=== PATIENT | female | born 1960 | race Caucasian/White ===

== ENCOUNTER 2019-04-06 17:45 | Outpatient (CLI) | payer OTHER, SELFPAY ==
--- NOTE | ~2019-04-06 | MM_ITS ---
EXAMINATION: MM screening [place] BI w scar HISTORY: Screening mammogram TECHNIQUE: Craniocaudal and mediolateral oblique 3-D tomosynthesis images were obtained and synthetic 2-D images were generated. CAD analysis was submitted and interpreted. COMPARISON 04/02/2018, 03/25/2017, 03/21/2016 bilateral digital screening mammogram examinations: No prio r mammogram is available for comparison at this institution. BREAST PARENCHYMAL COMPOSITION: There are scattered areas of fibroglandular density. FINDINGS: A biopsy marker is again noted on the right; history of prior benign right breast biopsy. There are scattered bilateral benign calcifications. Stable mild fibroglandular asymmetry. There is no evidence of suspicious mass, calcification, or architectural distortion to suggest malign anne-marie in either breast. There has been no suspicious interval change. IMPRESSION: 1. No mammographic evidence of malignancy. 2. Recommend routine screening mammography in one year. BI-RADS Category 2: Benign finding(s). Reviewed, dictated and finalized at location A. SETTER
== END 2019-04-06 17:46 | disposition home or self-care (01) ==
LOC: ANHIMG 17:49
PROVIDERS: PCP Family Medicine; Visit Provider Nurse Practitioner Obstetrics & Gynecology
DX: Z12.31 Encounter for screening mammogram for malignant neoplasm of breast (principal)
CPT/HCPCS: 77063; 77067

== ENCOUNTER 2021-02-04 12:49 | Emergency (ER) | payer OTHER, SELFPAY ==
[2021-02-04 13:00] VITALS: BP 146/71; PULSE 97; RESP 16; TEMP 36.4; O2SAT 98
--- NOTE | 2021-02-04 13:24 | ED.SKABFB ---
HPI - Skin/Abscess/Foreign Bdy General Chief complaint: Skin/Abscess/Foreign Body Stated complaint: rash Time Seen by Provider: 02/04/21 13:30 Source: patient and RN notes reviewed Mode of arrival: ambulatory Limitations: no limitations History of Present Illness HPI narrative: Babita is a 6-year-old female patient who ambulated into the [facility] today with complaint of rash all over her body. Patient states she started taking Boswellia extract for arthritis on 02/03/2021. Patient states she took it daily for the next 4 days. On to Friday she started noticing that she was itching by Friday she noticed a rash all over her body. Patient has been treating at home with a prescription lotion. 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 Patient's lower legs are being treated by dermatology and rheumatology in [place]. Patient states she has no other new medications. Patient states she has not used any new soaps or any other new products in her house. MD complaint: rash Related Data Home Medications Medication Instructions Recorded Confirmed celecoxib 200 mg DAILY 02/04/21 02/04/21 cyclosporine [Restasis] drp 02/04/21 latanoprost drp 02/04/21 leflunomide mg 02/04/21 Allergies Allergy/AdvReac Type Severity Reaction Status Date / Time [id number] Allergy Severe PENICILLIN Verified 02/04/21 13:48 REACTION--MOLD PREPARATION Sulfa (Sulfonamide Allergy Severe pruritic Verified 02/04/21 13:48 Antibiotics) RASH sulfamethoxazole Allergy Severe RASH Verified 02/04/21 13:48 trimethoprim Allergy Severe RASH Verified 02/04/21 13:48 Penicillins Allergy Unknown Rash Verified 02/04/21 13:48 CHIO Inhibitors Allergy angioedema Verified 02/04/21 13:48 Review of Systems Review of Systems: CONSTITUTIONAL: Denies body aches, fever, chills, or sweats. EYES: Denies visual changes, redness, or discharge. ENT: Denies rhinorrhea, congestion, sore throat, or otalgia. CARDIOVASCULAR: Denies chest pain, palpitations, or edema. RESPIRATORY: Denies cough or dyspnea. GASTROINTESTINAL: Denies abdominal pain, nausea, vomiting, or diarrhea. GENITOURINARY: Denies dysuria or hematuria. SKIN: Denies itching, or wounds.+ Rash MUSCULOSKELETAL: Denies back pain, joint pain, or myalgia. NEUROLOGIC: Denies headache, numbness, tingling, or weakness. PSYCH: Denies depression or anxiety. All systems reviewed & are unremarkable except as noted in HPI and below PMFSH Past Medical History Medical History Benign hypertension Glaucoma Morbid obesity Normal colonoscopy Onycholysis of toenail Onychomycosis due to dermatophyte CRISTOPHER treated with BiPAP Psoriasis Psoriatic arthritis Surgical History Surgical History H/O hand surgery History of esophagogastroduodenoscopy (EGD) Family History Family History Mother Family history of thyroid disease Family history of obesity Family history of blood dyscrasia Family history of glaucoma Family history of cataracts Family history of anemia Patient's mother is in good health Family history of kidney disease Father Family history of hearing loss Patient's father is , Onset Age: 72 Sibling Hypertension Patient's sister is in good health Patient's brother is in good health Family history of cardiovascular disease Family history of arthritis Social History Social History Social History: Smoking packs per day: 1 Smoking cigarettes per day: 20.0 Years smoked: 21 Smoking pack-years: 21.00 Smoking status: Never smoker Second hand tobacco smoke exposure: No Smoking end date: 02/05/99 Alcohol intake: current Alcohol
[2021-02-04] MEDS: methylPREDNISolone SOD SUCC 125 MG VIAL IM (13:49)
== END 2021-02-04 14:05 | disposition home or self-care (01) ==
PROVIDERS: Emergency Provider Nurse Practitioner Family; PCP Family Medicine
DX: L23.5 Allergic contact dermatitis due to other chemical products (principal); Z87.891 Personal history of nicotine dependence; H40.9 Unspecified glaucoma; E66.01 Morbid (severe) obesity due to excess calories; Z68.41 Body mass index [BMI] 40.0-44.9, adult; G47.33 Obstructive sleep apnea (adult) (pediatric); L40.50 Arthropathic psoriasis, unspecified
CPT/HCPCS: 96372; 99213; G0463; J2930

== ENCOUNTER 2021-05-29 17:28 | Outpatient (CLI) | payer OTHER, SELFPAY ==
--- NOTE | ~2021-05-29 | MM_ITS ---
EXAMINATION: MM screening [facility] BI w scar HISTORY: Screening TECHNIQUE: Craniocaudal and mediolateral oblique 3-D tomosynthesis images were obtained and synthetic 2-D images were generated. CAD analysis was submitted and interpreted. COMPARISON: Comparison to multiple prior studies sequentially, with oldest reviewed study dated 01/24. BREAST PARENCHYMAL COMPOSITION: There are scattered areas of fibroglandular density. FINDINGS: There is no evidence of suspicious mass, calcification, or architectural distortion to sugg est malignancy in either breast. There has been no suspicious interval change. IMPRESSION: 1. No mammographic evidence of malignancy. 2. Recommend routine screening mammography in one year. BI-RADS Category 1: Negative Reviewed, dictated and finalized at location A.
== END 2021-05-29 17:29 | disposition home or self-care (01) ==
PROVIDERS: PCP Family Medicine; Visit Provider Nurse Practitioner Obstetrics & Gynecology
DX: Z12.31 Encounter for screening mammogram for malignant neoplasm of breast (principal)
CPT/HCPCS: 77063; 77067

== ENCOUNTER 2021-06-08 09:55 | Outpatient (CLI) | payer OTHER, SELFPAY ==
[2021-06-08 10:34] LABS: Anion Gap 7 mmol/L (8-16); Blood Urea Nitrogen 15 mg/dL (7-17); Calcium 9.2 mg/dL (8.4-10.2); Carbon Dioxide 25 mmol/L (22-30); Chloride 106 mmol/L (98-107); Estimated Glomerular Filt Rate > 60; Glucose 119 mg/dL (65-110); Potassium 3.7 mmol/L (3.4-5.0); Sodium 138 mmol/L (137-145)
== END 2021-06-08 09:56 | disposition home or self-care (01) ==
LOC: ANHSURGERY 09:59
PROVIDERS: Anesthesiology; PCP Family Medicine; Visit Provider Obstetrics & Gynecology
DX: Z01.818 Encounter for other preprocedural examination (principal); Z79.899 Other long term (current) drug therapy
CPT/HCPCS: 36415; 80048

== ENCOUNTER → 2021-06-09 00:19 | Outpatient (CLI) | payer OTHER, SELFPAY ==
[2021-06-09 11:57] LABS: SARS-CoV-2 RNA PCR Negative
== END ==
PROVIDERS: Nurse Practitioner Gerontology; PCP Family Medicine; Visit Provider Obstetrics & Gynecology
DX: Z01.812 Encounter for preprocedural laboratory examination (principal); Z20.822 Contact with and (suspected) exposure to COVID-19
CPT/HCPCS: C9803; U0003; U0005

== ENCOUNTER 2021-07-11 00:18 | Day surgery (SDC) | payer OTHER, SELFPAY ==
[2021-06-06 11:57] VITALS: BMI 41.6
--- NOTE | 2021-06-06 12:10 | PC.NURSE ---
Report to the Outpatient Waiting Room, entrance under the green pavilion located off [facility], at time 8:30 on date 06/12/21. OR Time: 10:30. - You and your visitor will be asked a series of questions to screen for COVID 19 for your protection. - A mask is required within the hospital. One visitor will be allowed to accompany the patient into the hospital. Patients visitor will be instructed to remain with patient at all times or leave the building. We will allow the visitor to come back to the postoperative area when patient is ready. Preoperative COVID Testing Requirements: COVID TEST 06/09 AT 7:30 No COVID Test needed if: (proof is required; if not received patient will have Rapid Test prior to entry) - Patient has received COVID Vaccine at least 14 days prior to procedure date or - Patient has positive COVID test result within last 90 days of surgery date. COVID Test needed if above criteria is not met If not COVID vaccinated a COVID test must be conducted within 72 hours of surgery and patient is asked to isolate self from time of testing until procedure. You will go to the [facility] for your COVID testing. The [facility] is located at the corner of [address] [facility]. You will only be called if COVID results are positive and your surgeon may reschedule your elective surgery date. Patients may have clear liquids (water, carbonated beverages, clear teas, apple juice) until 3 hours prior to surgery (7:30) with a maximum of 20 ounces. - No food from midnight until time of surgery Take the following medications with a SIP of water the morning of surgery: LEVOTHYROXINE, LIOTHYRONINE Medications to discontinue per physician: VITAMINS/SUPPLEMENTS Date to take last dose: 06/08/21 Please no make-up, nail botswanan, hairspray, perfume, deodorant, or body powder the day of surgery. No jewelry (including any body piercings) or valuables the day of surgery, leave them at home. Please take a shower or bath the night before, or the morning of, surgery with an antibacterial soap. Wear comfortable, loose fitting clothing. - Jewelry must be removed prior to entering the operating room. Rings and piercings that are not removed may be cut off. - The hospital will not accept responsibility for valuables. - Please leave all valuables, including medications, at home the day of surgery. If you are going home after surgery, a licensed feeder driver must drive you home. - NO public transportation without another adult. - We recommend that an adult stay with you for 24 hours following discharge. - We also recommend that you do not drive, make important decision, drink alcoholic beverages, or take any drugs that were not prescribed by your health care provider for at least 24 hours after your discharge time. Follow any additional instructions given to you from your surgeon. Telephone instructions given to ROEL CONTRERAS and asked if any additional questions and then verbalized understanding. Patient advised to call surgeon office or pre surgery nurse liaison [phone] if any additional questions.
[2021-07-09 10:23] VITALS: BMI 41.6
--- NOTE | 2021-07-09 10:37 | SUR.PREOP ---
Report to the Outpatient Waiting Room, entrance under the green pavilion located off [facility], at time 0800 on date 07/11/2021. OR Time: 1000 - You and your visitor will be asked a series of questions to screen for COVID 19 for your protection. - Only one visitor is allowed at this time. - The patient visitor is requested to leave or wait in car when not with patient. - A mask is required within the hospital. Patients may have clear liquids (water, carbonated beverages, clear teas, apple juice) until 3 hours prior to surgery with a maximum of 20 ounces. stop 0600 - No food from midnight until time of surgery Take the following medications with a SIP of water the morning of surgery: levothyroxine and liothyronine okay to take Medications to discontinue per physician Vit D_ Date to take last dose states stopped already Please no make-up, nail chinese, hairspray, perfume, deodorant, or body powder the day of surgery. No jewelry (including any body piercings) or valuables the day of surgery, leave them at home. Please take a shower or bath the night before, or the morning of, surgery with an antibacterial soap. Wear comfortable, loose fitting clothing. Children are encouraged to wear pajamas. - Jewelry must be removed prior to entering the operating room. Rings and piercings that are not removed may be cut off. - The hospital will not accept responsibility for valuables. - Please leave all valuables, including medications, at home the day of surgery. If you are going home after surgery, a licensed refrigerated company driver must drive you home. - NO public transportation without another adult. - We recommend that an adult stay with you for 24 hours following discharge. - We also recommend that you do not drive, make important decision, drink alcoholic beverages, or take any drugs that were not prescribed by your health care provider for at least 24 hours after your discharge time. Follow any additional instructions given to you from your surgeon. If you or anyone in your household have experienced Covid symptoms in the past week, please notify your surgeon or the nurse liaison at the phone number below for possible testing. Telephone instructions given to patient Babita and asked if any additional questions and then verbalized understanding. Patient advised to call surgeon office or pre surgery nurse liaison [phone] if any additional questions.
[2021-07-11 08:35] VITALS: BP 137/73; PULSE 82; RESP 16; TEMP 36.2; O2SAT 98
[2021-07-11] MEDS: ACETAMINOPHEN 500 MG TABLET 1000 MG PO (08:54)
[2021-07-11] MEDS: LACTATED RINGERS 1,000 ML 30 ML IV CONT (09:18)
--- NOTE | 2021-07-11 09:19 | WPDANESEPPF ---
Anes - Initial Pre Proc Eval Procedure: Operation Date: 07/11/21 10:30 Proposed Procedures p Hysteroscopy with Dilation and Curettage - Joe Alvarado MD Date/Time: 07/11/21 09:19 Surgeon: Joe Alvarado MD Pre Op Diagnosis: Post Menopausal Bleeding Patient Data Age: 60 Gender: F Height: 1.6 m Weight: 103.9 kg Last Vital Signs Temp 36.2 C L 07/11/21 08:35 Pulse 82 07/11/21 08:35 Resp 16 07/11/21 08:35 BP 137/73 07/11/21 08:35 Pulse Ox 98 07/11/21 08:35 Allergies Allergy/AdvReac Type Severity Reaction Status Date / Time Sulfa (Sulfonamide Allergy Severe pruritic Verified 07/09/21 10:03 Antibiotics) RASH sulfamethoxazole Allergy Severe RASH Verified 07/09/21 10:03 trimethoprim Allergy Severe RASH Verified 07/09/21 10:03 Penicillins Allergy Unknown Rash Verified 07/09/21 10:03 leflunomide Allergy Rash Verified 07/09/21 10:03 mold Allergy Rash Verified 07/09/21 10:03 Home Medications Medication Instructions Recorded Confirmed Type ergocalciferol (vitamin D2) 1,250 50,000 unit PO WEEKLY #14 cap 12/15/20 07/09/21 Rx mcg (50,000 unit) capsule hydrochlorothiazide 12.5 mg tablet 12.5 mg PO DAILY #90 tablet 12/28/20 07/09/21 Rx celecoxib 200 mg PO DAILY 02/04/21 07/09/21 History cyclosporine [Restasis] 2 drp EACH EYE BID 02/04/21 07/09/21 History latanoprost 1 drp EACH EYE HS 02/04/21 07/09/21 History liothyronine 5 mcg tablet 5 mcg PO DAILY #90 tablet 02/26/21 07/09/21 Rx cetirizine 10 mg tablet 10 mg PO DAILY PRN #90 tablet 03/06/21 07/09/21 Rx hydroxyzine HCl 25 mg tablet 25 mg PO QID #90 tablet 03/06/21 07/09/21 Rx spironolactone 25 mg tablet See Rx Instructions .ROUTE 04/17/21 07/09/21 Rx .COMPLEX #90 tablet levothyroxine 125 mcg tablet See Rx Instructions .ROUTE 06/26/21 07/09/21 Rx .COMPLEX #80 tablet famotidine 20 mg tablet 20 mg PO BID #60 tablet 06/30/21 07/09/21 Rx clobetasol 0.05 % topical cream 1 applic TOPICAL BID 14 Days #60 g 07/04/21 07/09/21 Rx losartan 100 mg tablet See Rx Instructions .ROUTE 07/06/21 07/09/21 Rx .COMPLEX #90 tablet Patient hx anesthesia problems: none Family hx anesthesia problems: none Results Review: All pre-operative results and documents have been reviewed as part of the pre-operative evaluation. [facility] Past Medical History Medical History Benign hypertension Glaucoma Morbid obesity Normal colonoscopy Onycholysis of toenail Onychomycosis due to dermatophyte CRISTOPHER treated with BiPAP Psoriasis Psoriatic arthritis Surgical History Surgical History (Updated 07/11/21 @ 09:23 by Castro Craig MD) H/O hand surgery History of endometrial ablation History of esophagogastroduodenoscopy (EGD) Family History Family History Mother Family history of thyroid disease Family history of obesity Family history of blood dyscrasia Family history of glaucoma Family history of cataracts Family history of anemia Patient's mother is in good health Family history of kidney disease Father Family history of hearing loss Patient's father is , Onset Age: 72 Sibling Hypertension Patient's sister is in good health Patient's brother is in good health Family history of cardiovascular disease Family history of arthritis Social History Social History Social History: Years smoked: 20 Smoking status: Former smoker Tobacco type: cigarettes Second hand tobacco smoke exposure: No Smoking end date: 02/05/99 Alcohol intake: current Alcohol use details: 2/MONTH Substance use: never Substance use type: does not use Living arrangements: with family Gender identity (if verbalized by the patient): Female Sexual Orientation (if Verbalized by the Patient): Straight or Heterosexual Spiritual care concerns: No Anes - Aziza
--- NOTE | 2021-07-11 11:06 | WPDHPUPDATE1 ---
History and Physical Update Update Date/Time: 07/11/21 11:06 History and Physical has been reviewed, including an updated exam of the patient. There are NO changes in the patient's condition. Risks, benefits, and alternatives have been discussed and questions answered. Patient agrees to proceed with procedure.
--- NOTE | 2021-07-11 11:19 | W.PM.PROC2 ---
Procedure Note - Detailed Date of Procedure 07/11/21 Pre-op Diagnosis Post Menopausal Bleeding Post-op Diagnosis Same Procedure Performed Hysteroscopy D&C Surgeon Joe Alvarado MD Anesthesia MAC Indications abnormal uterine bleeding Findings Very thin, scarred, atrophic endometrium with possibly no endometrium. Description of Procedure the patient was taken the operating room. She was prepped and draped in the dorsal lithotomy position after induction of mac anesthesia. A speculum was placed in the vagina. The cervix was grasped with a tenaculum. The cervix was dilated about 1 cm. The hysteroscope was inserted. The intrauterine cavity and endocervix were evaluated. Hysteroscope was withdrawn. A medium-size curette was used to curettage all the surfaces were within the endometrial cavity. the sample was collected on Telfa and sent to pathology. The hysteroscope was reinserted and the above findings were noted. Patient tolerated the procedure well. The speculum and tenaculum were removed. She was taken recovery room in stable condition. Sponge lap and needle counts were correct x2. Estimated Blood Loss 40 Drains No Packing No Pathology Yes Complications No immediate complications Condition Stable Disposition PACU
[2021-07-11 12:26] VITALS: BP 119/73; PULSE 80; RESP 16; O2SAT 94
[2021-07-11 12:55] VITALS: BP 135/85; PULSE 69; RESP 16; O2SAT 96
[2021-07-11] MEDS: oxyCODONE HCL (*CRX) 5 MG TAB IR PO (12:58)
[2021-07-11 13:25] VITALS: BP 126/76; PULSE 65; RESP 16
== END 2021-07-11 13:40 | disposition home or self-care (01) ==
PROVIDERS: PCP Family Medicine; Visit Provider Obstetrics & Gynecology
PROC: 0U5B8ZZ Destruction of Endometrium, Via Natural or Artificial Opening Endoscopic (ICD-10-PCS; CPT 58563; principal; 2021-07-11 10:30)
DX: N95.0 Postmenopausal bleeding (principal); N85.8 Other specified noninflammatory disorders of uterus; I10 Essential (primary) hypertension; G47.33 Obstructive sleep apnea (adult) (pediatric); L40.50 Arthropathic psoriasis, unspecified; H40.9 Unspecified glaucoma; E66.01 Morbid (severe) obesity due to excess calories; Z68.41 Body mass index [BMI] 40.0-44.9, adult
CPT/HCPCS: 58558; 88305; A9270; J2250; J2704; J3010; J7030; J7120

== ENCOUNTER 2021-08-09 16:44 | Outpatient (CLI) | payer OTHER, SELFPAY ==
--- NOTE | ~2021-08-09 | DEXA_ITS ---
Bone Density Report Name: ROEL CONTRERAS Age: 60 Sex: Female Ethnicity: White Date of : 1960 Indication: postmenopausal; screening for osteoporosis; height loss; Referring Provider: LORETTA, BELLO [place] Study: Bone densitometry was performed. Exam Date: August 09, 2021 Accession number: [id number] Bone Density: Region BMD T-score Z-score Classification AP Spine(L1-L4) 0.955 -0.8 0.6 Normal Femoral Neck (Left) 0.700 -1.3 0.0 Osteopenia Total Hip (Left) 1.012 0.6 1.6 Normal Femoral Neck (Right) 0.755 -0.8 0.5 Normal Total Hip (Right) 1.063 1.0 2.0 Normal Total Hip Mean 1.037 0.8 1.8 Normal World Health Organization criteria for BMD impression classify patients as: Normal (T-score at or above -1.0), Osteopenia (T-score between -1.0 and -2.5), or Osteoporosis (T-score at or below -2.5). 10-year Fracture Risk(1): Major Osteoporotic Fracture 6.7% Hip Fracture 0.4% Reported Risk Factors: [place] (), Neck BMD=0.700, BMI=43.0 (1) FRAX(R) Version 3.08. Fracture probability calculated for an untreated patient. Fracture probability may be lower if the patient has received treatment. Clinical Information Provided by Patient: Patient maximum height was 63 Menopause Age: 38 No regular weight bearing exercise Drinks caffeinated beverages Onset of menses at age 13 Number of children 1 Impression: The patient has low bone mass, based on the Left Femoral Neck T-score. The patient has an estimated ten-year risk of hip fracture of 0.4% and an estimated ten-year risk of major fracture of 6.7%, based on the WHO FRAX algorithm. Discussion: BONE DENSITY IS LOW AT ONE OR MORE SKELETAL SITES. This patient's lowest T-score is low at one or more skeletal sites. It meets the World Health Organization's (WHO) criteria for ?low bone mass? (T-score between -1.0 and -2.5). The patient's 10-year risk of fracture as calculated by FRAX is less than the threshold where pharmacological therapy is recommended by the National Osteoporosis Foundation (NOF). However, all treatment decisions require clinical judgment and consideration of individual patient factors, including patient preferences, comorbidities, previous drug use, risk factors not captured in the FRAX model (e.g., frailty, falls, vitamin D deficiency, increased bone turnover, interval significant decline in bone density) and possible under or overestimation of fracture risk by FRAX. The patient should follow a healthful lifestyle (good nutrition with adequate calcium and vitamin D, and appropriate weight-bearing exercise). Follow-Up: Consider repeating this study in 2 to 3 years to reassess this patient's status, or sooner if there is some new clinical indication. Reported by: REBECA on 08/09/2021 5:09:00 PM.
== END 2021-08-09 16:45 | disposition home or self-care (01) ==
PROVIDERS: PCP Family Medicine; Visit Provider Nurse Practitioner Obstetrics & Gynecology
DX: Z78.0 Asymptomatic menopausal state (principal); M85.852 Other specified disorders of bone density and structure, left thigh
CPT/HCPCS: 77080

== ENCOUNTER 2022-07-20 09:11 | Outpatient (CLI) | payer OTHER, SELFPAY ==
--- NOTE | ~2022-07-20 | MM_ITS ---
EXAMINATION: MM screening [place] BI w scar HISTORY: Screening mammogram TECHNIQUE: Craniocaudal and mediolateral oblique 3-D tomosynthesis images were obtained and synthetic 2-D images were generated. CAD analysis was submitted and interpreted. COMPARISON: May 29, 2021, April 06, 2019, April 02, 2018 bilateral screening mammogram examinat ions BREAST PARENCHYMAL COMPOSITION: There are scattered areas of fibroglandular density. FINDINGS: There is a biopsy marker on the right; history of prior benign right breast biopsy. Scattered bilateral benign microcalcifications. There is no evidence of suspicious mass, calcificatio n, or architectural distortion to suggest malignancy in either breast. There has been no suspicious i nterval change. IMPRESSION: 1. No mammographic evidence of malignancy. 2. Recommend routine screening mammography in one year. BI-RADS Category 2: Benign finding(s). Reviewed, dictated and finalized at location A.
== END 2022-07-20 09:12 | disposition home or self-care (01) ==
PROVIDERS: PCP Student in an Organized Health Care Education/Training Program; Visit Provider Nurse Practitioner Obstetrics & Gynecology
DX: Z12.31 Encounter for screening mammogram for malignant neoplasm of breast (principal)
CPT/HCPCS: 77063; 77067

== ENCOUNTER 2024-06-08 17:08 | Emergency (ER) | payer OTHER, SELFPAY ==
--- OUTSIDE RECORDS SUMMARY | 2024-06-08 17:11 | XMS_ITS | Encounter Summary ---
Author Organization [facility] Address [address] [place] [address] Care Team Providers Care Pond Worker Name Role Phone Amira San MD Primary Care Provider [phone] Dorota Campbell MD Primary Care Provider Antoinette Ruiz PA-C Unavailable [phone] Encounter Details Date Type Department Care Team (Late st Contact Info) Description 04/14/2017 Abstract [facility] CONVERSION [address] [place] [address] , Generic MD Fernanda Social History Tobacco Use Types Packs/Day Years Used Date Smoking Tobacco: Never Assessed Comments Unknown Sex and Gender Information Value Date Recorded Sex Assigned at Female 04/01/2024 4:04 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 TANK 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 Legal Sex Female 5:30 PM CDT Gender Identity Female 04/01/2024 4:04 PM BRINE TANK OPERATOR Sexual Orientation Not on file documented as of this encounter Plan of Treatment Upcoming Encounters Date Type Department Care Team (Late st Contact Info) Description 06/22/2024 3:40 PM CDT Office Visit [facility] Orthopedic & Sports Medicine - [place] [address] [place] [address] Gaudencio Correa MD [address] [address] [place], [place] [id number] 11/11/2024 4:20 PM CDT Office Visit [facility] Family & Internal Medicine [facility] [address] [place] [address] [place] [address] [facility] [address] [place] [id number] documented as of this encounter Visit Diagnoses Not on filedocumented in this encounter Additional Health Concerns Infection Onset Date Last Indicated Resolved Time COVID-19 Rule Out 02/23/2024 02/23/2024 02/23/2024 4:27 PM BRINE TANK OPERATOR documented as of this encounter Care Teams Pond Worker Relationship Specialty Start Date End Date Amira San MD [address] [facility] [address] [place] [address] PCP - General FAMILY PRACTICE 05/05/20 04/01/22 [place] [address] [place] [address] PCP - General FAMILY PRACTICE 04/02/22 Antoinette Ruiz [place] [address] [place] [address] PHYSICIAN SILVERSMITH APPRENTICE 06/17/23 documented as of this encounter
--- OUTSIDE RECORDS SUMMARY | 2024-06-08 17:11 | XMS_ITS ---
Author Organization Unknown Medications Medication Instructions Effective Dates (start - stop) Status levothyroxine sodium 0.1 MG Oral Tablet - Completed liothyronine sodium 0.005 MG Oral Tablet - Completed pentoxifylline 400 MG Extend ed Release Oral Tablet - Completed losartan potassium 100 MG Or al Tablet - Completed spironolactone 25 MG Oral Tablet 00:00:00Z - Completed liothyronine sodium 0.005 MG Oral Tablet - Completed liothyronine sodium 0.005 MG Oral Tablet - Completed losartan potassium 100 MG Or al Tablet - Completed tramadol hydrochloride 50 MG Oral Tablet - Completed liothyronine sodium 0.005 MG Oral Tablet - Completed 1 ML secukinumab 150 MG/ML Auto-Injector [Cosentyx] - Completed spironolactone 25 MG Oral Tablet :00:00Z - Completed tramadol hydrochloride 50 MG Oral Tablet - Completed famotidine 20 MG Oral Tablet [id number] 0:00:00Z - Completed liothyronine sodium 0.005 MG Oral Tablet - Completed 1 ML secukinumab 150 MG/ML Auto-Injector [Cosentyx] - Completed levothyroxine sodium 0.125 M G Oral Tablet - Completed levothyroxine sodium 0.125 M G Oral Tablet - Completed pentoxifylline 400 MG Extend ed Release Oral Tablet - Completed pentoxifylline 400 MG Extend ed Release Oral Tablet - Completed pentoxifylline 400 MG Extend ed Release Oral Tablet - Completed tacrolimus 0.001 MG/MG Topic al Ointment - Completed tramadol hydrochloride 50 MG Oral Tablet - Completed brimonidine tartrate 2 MG/ML Ophthalmic Solution - Completed doxycycline hyclate 100 MG O ral Capsule - Completed levothyroxine sodium 0.125 M G Oral Tablet - Completed acetaminophen 325 MG / hydro codone bitartrate 5 MG Oral Tablet - Completed pentoxifylline 400 MG Extend ed Release Oral Tablet - Completed brimonidine tartrate 2 MG/ML Ophthalmic Solution - Completed 1 ML secukinumab 150 MG/ML Auto-Injector [Cosentyx] - Completed famotidine 20 MG Oral Tablet [id number] 0:00:00Z - Completed 1 ML secukinumab 150 MG/ML Auto-Injector [Cosentyx] - Completed pentoxifylline 400 MG Extend ed Release Oral Tablet - Completed losartan potassium 100 MG Or al Tablet - Completed brimonidine tartrate 2 MG/ML Ophthalmic Solution - Completed hydrochlorothiazide 12.5 MG Oral Tablet - Completed spironolactone 25 MG Oral Tablet :00:00Z - Completed {21 (methylprednisolone 4 MG Oral Tablet) } Pack - Completed losartan potassium 100 MG Or al Tablet - Completed 1 ML secukinumab 150 MG/ML Auto-Injector [Cosentyx] - Completed levothyroxine sodium 0.1 MG Oral Tablet - Completed 1 ML secukinumab 150 MG/ML Auto-Injector [Cosentyx] - Completed 1 ML secukinumab 150 MG/ML Auto-Injector [Cosentyx] - Completed tramadol hydrochloride 50 MG Oral Tablet - Completed famotidine 20 MG Oral Tablet [id number] 0:00:00Z - Completed pentoxifylline 400 MG Extend ed Release Oral Tablet - Completed levothyroxine sodium 0.125 M G Oral Tablet - Completed liothyronine sodium 0.005 MG Oral Tablet - Completed pentoxifylline 400 MG Extend ed Release Oral Tablet - Completed 0.4 ML cyclosporine 0.5 MG/M L Ophthalmic Suspension [Restasis] - Comp leted acetaminophen 325 MG / hydro codone bitartrate 5 MG Oral Tablet - Completed 1 ML secukinumab 150 MG/ML Auto-Injector [Cosentyx] - Completed 1 ML secukinumab 150 MG/ML Auto-Injector [Cosentyx] - Completed losartan potassium 100 MG Or al Tablet - Completed hydrochlorothiazide 12.5 MG Oral Tablet - Completed metronidazole 0.0075 MG/MG T opical Gel - Completed pentoxifylline 400 MG Extend ed Release Oral Tablet - Completed nitrofurantoin, macrocrystal s 25 MG / nitrofurantoin, monohydrate 75 MG Oral Capsule - Completed 1 ML secukinumab 150 MG/ML Auto-Injector [Cosentyx] - Completed metronidazole 0.0075 MG/MG T opical Gel - Completed pentoxifylline 400 MG Extend ed Release Oral Tablet - Completed 1 ML secukinumab 150 MG/ML Auto-Injector [Cosentyx] - Completed tacrolimus 0.001 MG/MG Topic al Ointment - Completed spironolactone 25 MG Oral Tablet :00:00Z - Completed acetaminophen 325 MG / hydro codone bitartrate 5 MG Oral Tablet - Completed pentoxifylline 400 MG Extend ed Release Oral Tablet - Completed brimonidine tartrate 2 MG/ML Ophthalmic Solution - Completed spironolactone 25 MG Oral Tablet :00:00Z - Completed brimonidine tartrate 2 MG/ML Ophthalmic Solution - Completed brimonidine tartrate 2 MG/ML Ophthalmic Solution - Completed 1 ML secukinumab 150 MG/ML Auto-Injector [Cosentyx] - Completed pentoxifylline 400 MG Extend ed Release Oral Tablet - Completed {6 (azithromycin 250 MG Oral Tablet) } Pack - Completed famotidine 20 MG Oral Tablet [id number] 0:00:00Z - Completed hydrochlorothiazide 12.5 MG Oral Tablet - Completed brimonidine tartrate 2 MG/ML Ophthalmic Solution - Completed ergocalciferol 1.25 MG Oral Capsule 00:00:00Z - Completed famotidine 20 MG Oral Tablet [id number] 0:00:00Z - Completed desoximetasone 2.5 MG/ML Top ical Cream - Completed 1 ML secukinumab 150 MG/ML Auto-Injector [Cosentyx] - Completed hydrochlorothiazide 12.5 MG Oral Tablet - Completed brimonidine tartrate 2 MG/ML Ophthalmic Solution - Completed levothyroxine sodium 0.1 MG Oral Tablet - Completed levothyroxine sodium 0.1 MG Oral Tablet - Completed acetaminophen 325 MG / hydro codone bitartrate 5 MG Oral Tablet - Completed tramadol hydrochloride 50 MG Oral Tablet - Completed tacrolimus 0.001 MG/MG Topic al Ointment - Completed Patient Care team information Name Category Status Period Participants - - Proposed period not known -
--- OUTSIDE RECORDS SUMMARY | 2024-06-08 17:11 | XMS_ITS | Data Portability ---
Author Organization [facility] Address [address] [place] [address] [place] [address] Care Team Providers Care Director Metabolism Name Role Phone ZAC MAGUIRE Primary Care Provider Assessment Encounter Date Assessment Date Assessment LastModified by Organization Details LastModified Time 05/03/2022 05/03/2022 Annual gynecological exam performed. Patient will come back in a year unless there are new symptoms. [email or web address] Not available 05/03/2022 11:23:39 Plan of Treatment Reminders Order Date Submit Date Provider Last Modified By Organization Details Last Modified Time Details Appointments None recorded. Lab None recorded. Referral None recorded. Procedures None recorded. Surgeries None recorded. Imaging MAMMO, screening, bilateral 2022 023 [facility], [address], [address], [place], [address], 3 05:01:16 US, transvagina l 2021 022 [email or web address] [place], [address], [address], [place], [address], 18:10:40 Medication Orders None recorded. Patient TargetsNo targets recorded. Patient InstructionsNo instructions recorded. Reason for Referral None Reported. Results Created Date Observation Date Name Description Value Unit Range Abnormal Flag Note LastModifiedBy Organization Detail LastModifiedTime 08/03/19 22 08/02/2021 US, trans vagin al No observ ation record ed. [email or web address] [address], [place], [address], 08/02/2021 18:06:47 08/03/19 22 08/02/2021 US, trans vagin al No observ ation record ed. [email or web address] [address], [place], [address], 08/02/2021 19:09:47 09/12/19 22 DEXA, axial skele ton + verte bral fract ure asses sment No observ ation record ed. [facility] [address], [place], [address], 09/16/2021 11:37:38 Result Notes None recorded. 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 2 16:23:53 Blood leukocyt e number above referenc e range [id number] Completed 201604/26/2021 Elevated white blood cell count, unspecif ied;Prac ady ID: 0001 [facility] 2 16:23:37 Screenin g for malignan t neoplasm of rectum Completed 201604/26/2021 Encounte r for screenin g for malignan t neoplasm of rectum;P ractice ID: 0001 [facility] 2 16:23:[address] Concept Completed 201704/26/2021 Encntr for general adult medical exam w/o abnormal findings ;Practic e ID: 0001 [facility] 2 16:23:51 Finding of body mass index [id number] Completed 201804/26/2021 Body mass index (BMI) 40.0-44. 9, adult;Re corded Elsewher e: No Locat ion: [facility] S ource: EHR Customer Service Rep nathan: N Zachti ce ID: 0001 Perez lable Time: 01:00:00 PM [facility] 2 16:23:36 Speciali zed medical examinat ion Completed 201304/26/2021 Gynecolo gical Examinat ion;John rded Elsewher e: No Locat ion: [facility] S ource: EHR Customer Service Rep nathan: N Zachti ce ID: 0001 Perez lable Time: 03:45:00 PM [facility] 2 16:23:55 Adult health examinat ion Completed 201304/26/2021 ROUTINE MEDICAL EXAM;Rec orded Elsewher e: No Locat ion: [facility] S ource: EHR Customer Service Rep nathan: N Zachti ce ID: 0001 Perez lable Time: 03:45:00 PM [facility] 2 16:23:35 Menopaus e present [id number] Completed 201704/26/2021 Symptoms such as flushing , sleeples sness, headache , lack of concentr ation, associat ed with natural (age-rel ated) menopaus e;Record ed Elsewher e: No Locat ion: [facility] S ource: EHR Customer Service Rep nathan: N Zachti ce ID: 0001 Perez lable Time: 01:30:00 PM [facility] 2 16:23:43 Urinary incontin ence [id number] Completed 201104/26/2021 Urinary incontin ence, unspecif ied;John rded Elsewher e: No Locat ion: [facility] S ource: EHR Customer Service Rep nathan: N Zachti ce ID: 0001 Perez lable Time: 02:45:00 PM [facility] 2 16:23:57 Urinary tract infectio us disease [id number] Completed 201112/20/2011 Urinary Tract Infectio n;Record ed Elsewher e: No Locat ion: [facility] S ource: EHR Customer Service Rep nathan: N Practi ce ID: 0001 Perez lable Time: 02:45:00 PM Not Available [facility] 0 21:54:39 Leukocyt osis [id number] Completed 201104/26/2021 LEUKOCYT OSIS NOS;John rded Elsewher e: No Locat ion: [facility] S ource: EHR Customer Service Rep nathan: N Zachti ce ID: 0001 Perez lable Time: 03:30:00 PM [facility] 2 16:23:39 Speciali zed medical examinat ion Completed 201012/20/2011 Gynecolo gical Examinat ion;John rded Elsewher e: No Locat ion: [facility] S ource: EHR Customer Service Rep nathan: N Zachti ce ID: 0001 Perez lable Time: 11:30:00 AM [facility] 2 16:23:55 Screenin g for malignan t neoplasm of cervix Completed 201012/20/2011 Screenin g for malignan t neoplasm s of the cervix;R ecorded Elsewher e: No Locat ion: [facility] S ource: EHR Customer Service Rep nathan: N Practi ce ID: 0001 Perez lable Time: 11:30:00 AM [facility] 2 16:23:47 Screenin g for malignan t neoplasm of rectum Completed 201012/20/2011 Screenin g for malignan t neoplasm s of the rectum;R ecorded Elsewher e: No Locat ion: [facility] S ource: EHR Customer Service Rep nathan: N Practi ce ID: 0001 Perez lable Time: 11:30:00 AM [facility] 2 16:23:49 Leukopen ia [id number] Completed 201104/26/2021 LEUKOCYT OPENIA NOS;Prac ady ID: 0001 [facility] 2 16:23:41 Proteinu kimmie [id number] Completed 201104/26/2021 Proteinu kimmie;Prac ady ID: 0001 [facility] 2 16:23:45 Screenin g for malignan t neoplasm of cervix Completed 201104/26/2021 Pap Smear;Pr actice ID: 0001 [facility] 2 16:23:47 Problem Notes None recorded. Procedures Surgical History Date Name Laterality Status Provider Name and Address Organization Details Recorded Time 07/12/19 22 DILATION AND CURETTAGE WITH HYSTEROSCOPY (SURG) completed Lisbeth Hatch [facility] 07/12/2021 11:38:45 04/28/19 22 Date of Last Pap Smear completed Ginna De Jesus [facility] 05/03/2022 11:25:39 04/02/19 20 Date of Last Mammogram completed [facility] 04/27/2021 09:36:07 02/24/19 13 release of trigger thumb completed [facility] 04/26/2021 17:15:59 02/03/20 12 Most Recent Bone Density completed [facility] 04/27/2021 09:36:43 02/24/19 06 Breast Biopsy completed [facility] 04/26/2021 17:14:50 02/24/19 06 Hysteroscopy completed [facility] 04/26/2021 17:15:19 02/24/18 99 procedure on urinary bladder completed [facility] 04/26/2021 17:14:36 02/24/18 88 Tubal Ligation completed [facility] 04/26/2021 17:14:21 Tubal Ligation completed [facility] 04/27/2021 10:02:10 Colonoscopy completed [facility] 04/27/2021 10:02:10 Breast Biopsy completed [facility] 04/27/2021 10:02:10 LEEP completed [facility] 04/27/2021 10:02:10 Hysteroscopy completed Julita Clinton [facility] 05/14/2021 17:01:51 Imaging Results Imaging Date Name Status LastModified by Organization Details LastModified Time 08/02/2021 US[facility]inal [email or web address] [address] [place], [address], 08/02/2021 18:06:47 08/02/2021 US, transvaginal completed [email or web address] [address], [place], [address], 08/02/2021 19:09:47 09/11/2021 DEXA, axial skeleton + vertebral fracture assessment completed [facility] [address], [place], [address], 09/16/2021 11:37:38 Procedure Notes None recorded. Medical Equipment None Reported. Allergies Allergen ID Allergen Name Allergen Category Reaction Reaction Severity Criticality Documentation Date Start Date Code Code System Note Provider Name and Address Organization Details Recorded Time 03500 egg extract food,medi cation Not available Not available Not available 02/11/2020 44236 15 RxNorm React ion: sneez e, blow nose, water y itchy ; Comme nt: Locat ion: [facility] Stevens r; Not Available [facility] 0 14:17:48 09692 chicken derived food Not available Not available Not available 02/11/2020 10436 UNK Comme nt: Locat ion: [facility] Stevens [facility]; Not Available [facility] 0 14:17:48 45176 Product containin g penicilli n (product) medicatio n Not available Not available Not available 02/11/2020 49052 8001 SNOMED React ion: Hives / Skin Rash; Comme nt: Locat ion: [facility]; Not Available [facility] 0 14:17:48 Medications Name Sig Start Date Stop Date Status Note LastModified by Organization Details LastModified Time celecoxib 200 mg capsule TAKE 1 CAPSULE BY MOUTH ONCE DAILY active Not Available Not Available No t Available latanopro st 0.005 % eye drops INSTILL 1 DROP INTO EACH EYE AT BEDTIME DIRECTED 05/03 completed Not Available Not Available Not Available aspirin 300 mg rectal supposito ry 04/27 completed Prescrib ed Elsewher e: Yes Loca tion: Paolo gandhi [facility] odify By: alex loaiza DateTime : 01/25/20 14 02:34:16 PM Not Available Not Available Not Available Colace 100 mg capsule take 1 capsule by oral route every day at bedtime as needed 04/27 completed Prescrib ed Elsewher e: Yes Loca tion: Paolo gandhi [facility] odify By: alex loaiza DateTime : 01/25/20 14 02:34:16 PM Not Available Not Available Not Available cetirizin e 10 mg tablet TAKE 1 TABLET BY MOUTH ONCE DAILY FOR ALLERGIE S 05/03 completed Not Available Not Available Not Available fluocinol one 0.01 % topical cream apply by topical route 2- 4 times every day a thin layer to the affected area(s) 01/31 completed Prescrib ed Elsewher e: Yes Loca tion: Paolo gandhi [facility] odify By: lsloan E ncounter DateTime : 01/25/20 14 02:34:16 PM Not Available Not Available Not Available meloxicam 15 mg tablet take 1 tablet (15MG) by oral route every day 05/03 completed Prescrib ed Elsewher e: No [facility] By: luis enrique Gandhi ncounter DateTime : 12/14/19 11 11:30:00 AM Not Available Not Available Not Available prednison e 20 mg tablet TAKE 3 TABLETS BY MOUTH ONCE DAILY FOR 5 DAYS THEN 2 ONCE DAILY FOR 5 DAYS THEN 1 ONCE DAILY FOR 5 DAYS 04/26 completed Not Available Not Available Not Available clobetaso l 0.05 % topical cream 05/03 completed Not Available Not Available Not Available folic acid 20 mg capsule 03/05 completed Prescrib ed Elsewher e: Yes [facility] By: nella burciaga DateTime : 01/25/20 14 02:34:16 PM Not Available Not Available Not Available Ultracet 37.5 mg-325 mg tablet take 2 tablet by oral route every 4 - 6 hours as needed, for up to 5 days; do not exceed 8 tablets in 24hrs 01/13 completed Prescrib ed Elsewher e: Yes [facility] By: alex loaiza DateTime : 12/18/19 12 03:30:00 PM Not Available Not Available Not Available omeprazol e 40 mg capsule,d elayed release take 1 capsule by oral route every day before a meal 04/27 completed Prescrib ed Elsewher e: Yes Loca tion: [facility] odify By: alex loaiza DateTime : 01/25/20 14 02:34:16 PM Not Available Not Available Not Available liothyron ine 5 mcg tablet TAKE 1 TABLET BY MOUTH ONCE DAILY active Not Available Not Available No t Available leflunomi de 20 mg tablet TAKE 1 TABLET BY MOUTH ONCE DAILY 05/03 completed Not Available Not Available Not Available spironola ctone 25 mg tablet TAKE 1 TABLET BY MOUTH ONCE DAILY active Not Available Not Available No t Available pentoxify lline ER 400 mg tablet,ex tended release TAKE 1 TABLET BY MOUTH THREE TIMES DAILY active Not Available Not Available No t Available biotin (bulk) powder 04/27 completed Prescrib ed Elsewher e: Yes Loca tion: Paolo gandhi [facility] odify By: alex loaiza DateTime : 01/25/20 14 02:34:16 PM Not Available Not Available Not Available famotidin e 20 mg tablet TAKE 1 TABLET BY MOUTH TWICE DAILY active Not Available Not Available No t Available Claritin- D 24 Hour 10 mg-240 mg tablet,ex tended release take 1 tablet by oral route every day 01/31 completed Prescrib ed Elsewher e: Yes [facility] odify By: lslobrock lanunter DateTime : 01/25/20 14 02:34:16 PM Not Available Not Available Not Available benzonata te 100 mg capsule TAKE 2 CAPSULES BY MOUTH THREE TIMES DAILY NEEDED FOR COUGH 05/03 completed Not Available Not Available Not Available tacrolimu s 0.1 % topical ointment APPLY TO LEGS TWICE DAILY 05/03 completed Not Available Not Available Not Available levothyro xine 125 mcg tablet TAKE 1 TABLET BY MOUTH ONCE DAILY. SKIP EACH FRIDAY active Not Available Not Available No t Available metronida zole 0.75 % topical cream 04/26 completed Not Available Not Available Not Available losartan 25 mg tablet 04/27 completed Not Available Not Available Not Available magnesium 100 mg capsule 04/27 completed Prescrib ed Elsewher e: Yes Loca tion: Paolo gandhi [facility] odify By: alex loaiza DateTime : 01/25/20 14 02:34:16 PM Not Available Not Available Not Available hydrochlo rothiazid e 12.5 mg capsule 05/03 completed Not Available Not Available Not Available black cohosh root extract 40 mg capsule 01/13 completed Prescrib ed Elsewher e: Yes Loca tion: Paolo gandhi [facility] odify By: alex loaiza DateTime : 12/18/19 12 03:30:00 PM Not Available Not Available Not Available omeprazol e 20 mg capsule,d elayed release take 1 capsule (20MG) by oral route every day before a meal 04/27 completed Not Available Not Available Not Available Tylenol 325 mg tablet take 1 tablet by oral route every 4 hours as needed active Prescrib ed Elsewher e: Yes Loca tion: [facility] odify By: alex loaiza DateTime : 12/18/19 12 03:30:00 PM Not Available Not Available Not Available Diflucan 10 mg/mL oral suspensio n take 10 millilit er by oral route every day 03/05 completed Prescrib ed Elsewher e: Yes Loca tion: [facility] odify By: nella burciaga DateTime : 02/01/20 15 03:00:00 PM Not Available Not Available Not Available hydroxyzi ne HCl 25 mg tablet TAKE 1 TABLET BY MOUTH 4 TIMES DAILY active Not Available Not Available No t Available ergocalci ferol (vitamin D2) 1,250 mcg (50,000 unit) capsule TAKE 1 CAPSULE BY MOUTH ONCE A WEEK active Not Available Not Available No t Available fluocinon celestino 0.05 % topical cream APPLY TO LEGS TWICE DAILY FOR 14 DAYS, THEN EVERY OTHER DAY 05/03 completed Not Available Not Available Not Available Paxil 10 mg tablet take 1 tablet by oral route every day 03/23 completed Prescrib ed Elsewher e: No Locat ion: [facility] odify By: bettie gleason DateTime : 06/20/19 18 01:17:49 PM Not Available Not Available Not Available losartan 100 mg tablet TAKE 1 TABLET BY MOUTH ONCE DAILY active Not Available Not Available No t Available metronida zole 0.75 % topical gel APPLY TOPICALL Y TO FACE TWICE DAILY 05/03 completed Not Available Not Available Not Available metronida zole 375 mg capsule 04/27 completed Not Available Not Available Not Available Levoxyl 137 mcg tablet take 1 tablet (137MCG) by oral route every day 01/31 completed Prescrib ed Elsewher e: No Locat ion: [facility] odify By: luba lanuntmarcus DateTime : 12/14/19 11 11:30:00 AM Not Available Not Available Not Available modafinil 100 mg tablet take 2 tablet by oral route every day in the morning 01/31 completed Prescrib ed Elsewher e: Yes Loca tion: Paolo gandhi [facility] odify By: luba gleason DateTime : 01/25/20 14 02:34:16 PM Not Available Not Available Not Available Vitamin C 500 mg capsule,e xtended release active Prescrib ed Elsewher e: Yes Loca tion: Paolo gandhi [facility] odify By: alex loaiza DateTime : 01/25/20 14 02:34:16 PM Not Available Not Available Not Available ciclopiro x 0.77 % topical cream apply by topical route every day to the affected and surround ing areas of skin in the morning and evening 01/31 completed Prescrib ed Elsewher e: Yes Loca tion: Paolo gandhi [facility] odify By: luba gleason DateTime : 01/25/20 14 02:34:16 PM Not Available Not Available Not Available Methotrex ate (Anti-Rhe umatic) 2.5 mg tablets in a dose pack take 2 tablet by oral route every week 01/31 completed Prescrib ed Elsewher e: Yes Loca tion: Paolo gandhi [facility] odify By: luba gleason DateTime : 01/18/20 14 03:45:00 PM Not Available Not Available Not Available cyclospor ine 0.05 % eye drops in a dropperet te INSTILL 1 DROP INTO EACH EYE TWICE DAILY 05/03 completed Not Available Not Available Not Available Glucosami ne 1500 Complex 500 mg-400 mg capsule 04/27 completed Prescrib ed Elsewher e: No Locat ion: Paolo gandhi [facility] odify By: adminnew Encount er DateTime : 12/14/19 11 11:30:00 AM Not Available Not Available Not Available fluocinon celestino 0.1 % topical cream 05/03 completed Not Available Not Available Not Available celecoxib 50 mg capsule 05/03 completed Not Available Not Available Not Available hydrochlo rothiazid e 12.5 mg tablet TAKE 1 TABLET BY MOUTH ONCE DAILY active Not Available Not Available No t Available Coral Calcium 133 mg calcium-1 33 unit-67mg capsule 03/05 completed Prescrib ed Elsewher e: Yes Loca tion: Paolo gandhi [facility] odify By: nella Castro r DateTime : 01/25/20 14 02:34:16 PM Not Available Not Available Not Available Aleve 220 mg capsule 12/17 completed Prescrib ed Elsewher e: Yes Loca tion: Paolo gandhi [facility] odify By: alex loaiza DateTime : 07/03/19 12 02:45:00 PM Not Available Not Available Not Available glucosami ne-chondr oitin 167 mg-133 mg capsule active Prescrib ed Elsewher e: Yes Loca tion: Paolo gandhi [facility] odify By: alex loaiza DateTime : 01/25/20 14 02:34:16 PM Not Available Not Available Not Available Natural Psyllium Fiber 3.4 gram/5.8 gram oral powder active Prescrib ed Elsewher e: Yes Loca tion: Paolo gandhi [facility] odify By: alex loaiza DateTime : 01/25/20 14 02:34:16 PM Not Available Not Available Not Available Women's One Daily 18 mg iron-400 mcg-500 mg Ca tablet 03/05 completed Prescrib ed Elsewher e: Yes Loca tion: Paolo gandhi [facility] odify By: nella Castro r DateTime : 01/25/20 14 02:34:16 PM Not Available Not Available Not Available Vitamin B-12 1,000 mcg/mL oral drops 04/27 completed Prescrib ed Elsewher e: Yes Loca tion: Paolo gandhi [facility] odify By: alex loaiza DateTime : 01/25/20 14 02:34:16 PM Not Available Not Available Not Available Otezla 30 mg tablet take 1 tablet by oral route 2 times every day approxim ately 12 hours apart 04/27 completed Prescrib ed Elsewher e: Yes Loca tion: Paolo gandhi [facility] odify By: bettie gleason DateTime : 03/23/19 19 01:00:00 PM Not Available Not Available Not Available Cosentyx Pen 150 mg/mL subcutane ous pen injector active Not Available Not Available Not Available Rhopressa 0.02 % eye drops INSTILL 1 INTO EACH EYE AT BEDTIME active Not Available Not Available No t Available BinaxNOW COVID-19 Ag Self Test kit Use as Directed on the Package 05/03 completed Not Available Not Available Not Available Paxlovid 300 mg (150 mg x 2)-100 mg tablets in a dose pack TAKE 3 TABLETS TOGETHER (TWO 150 MG NIRMATRE LVIR TABLETS AND ONE 100 MG RITONAVI R TABLET) BY MOUTH TWICE DAILY FOR 5 DAYS. 05/03 completed Not Available Not Available Not Available Vitals Date Recorded Body height Body mass index (BMI) Body weight Systolic blood pressure Diastolic blood pressure Provider Name and Address Organization Details Last Updated DateTime 07/25/2021 156.21 cm 42.9 kg/m2 805531.8 4 g 126 mm[Hg] 79 mm[Hg] [facility] 2 18:30:09 Date Recorded Body height Body mass index (BMI) Body weight Systolic blood pressure Diastolic blood pressure Provider Name and Address Organization Details Last Updated DateTime 08/18/2021 156.21 cm 43.5 kg/m2 485101.6 1 g 126 mm[Hg] 81 mm[Hg] [facility] 2 10:29:45 Date Recorded Body height Body mass index (BMI) Body weight Systolic blood pressure Diastolic blood pressure Provider Name and Address Organization Details Last Updated DateTime 05/03/2022 156.21 cm 42.5 kg/m2 679602.2 2 g 130 mm[Hg] 80 mm[Hg] Ginna De Jesus [facility] 3 11:24:06 Social History Question Answer Notes LastModified by Organizat ion Details LastModified Time Tobacco Smoking Status [facility]21 10:26:06 Do You Have An Advance Directive? No Information not available 04/27/2021 What Is Your Level Of Alcohol Consumption? Occasional Information not available 04/26/2021 Are You Blind Or Do You Have Difficulty Seeing? Yes Information not available 04/27/2021 What Is Your Level Of Caffeine Consumption? Heavy Information not available 04/27/2021 In The 14 Days Before Symptom Onset, Have You Had Close Contact With A Laboratory-confir med COVID-19 While That Case Was Ill? No Information not available 04/27/2021 In The 14 Days Before Symptom Onset, Have You Had Close Contact With A Person Who Is Under Investigation For COVID-19 While That Person Was Ill? No Information not available 04/27/2021 Have You Been To An Area Known To Be High Risk For COVID-19? No Information not available 04/27/2021 Are You Deaf Or Do You Have Serious Difficulty Hearing? No Information not available 04/26/2021 What Type Of Diet Are You Following? REGULAR Information not available 04/26/2021 What Is The Highest Grade Or Level Of School You Have Completed Or The Highest Degree You Have Received? 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 No Information not available 04/27/2021 Do You Use Your Seat Belt Or Car Seat Routinely? Yes Information not available 04/26/2021 Do You Have Smoke And Carbon Monoxide Detectors In Your Home? Yes Information not available 04/26/2021 At What Age Did You Start Smoking Tobacco? 17 Information not available 04/27/2021 How Much Tobacco Do You Smoke? No Information not available 04/27/2021 Do You Feel Stressed (tense, Restless, Nervous, Or Anxious, Or Unable To Sleep At Night)? [id number] Information not available 04/27/2021 Do You Use Any Illicit Or Recreational Drugs? No Information not available 04/26/2021 Do You Use Sunscreen Routinely? Yes Information not available 04/26/2021 How Many Years Have You Smoked Tobacco? 21 Information not available 04/27/2021 Have You Used IV Drugs? No Information not available 04/27/2021 Sex: Unknown Functional Status Question Answer Note LastModified by Organizat ion Details LastModified Time Do you have difficulty walking or climbing stairs? No Information not available 08/18/2021 Are you able to walk? YESWOREST Information not available 04/26/2021 Are you able to care for yourself? Yes Information not available 08/18/2021 Do you have difficulty dressing or bathing? No Information not available 08/18/2021 What is your exercise level? None Information not available 04/27/2021 Mental Status None recorded. Family History Relationship Description Onset Age of this Age Resolved Age Notes LastModified by Organization Details LastModified Time Brother Aortocoronar y bypass of one coronary artery Not available 2021 10:26:05 Father Pulmonary embolism Not available 2021 10:26:05 Mother Anemia Not available 04/2021 17:12:45 Mother Disorder of thyroid gland Not available 2021 17:12:51 Paternal Grandmother Malignant tumor of lung Not available 2021 17:13:01 Notes:great aunt colon cance r, breast cancer Medical History Condition Response Allergies (Food, seasonal, environmental ) Y Other Y Arthritis Y Acid Reflux (GERD) Y History of abnormal pap Y Eczema Y Fibromyalgia Y Thyroid Problems Y Osteoporosis Y Gynecological History Statement/Question Response Date of Last Mammogram 04/02/2019 On BCP's at Conception? N N STIs/STDs N Was last menstrual period normal N HPV Vaccine N Current Control Method None Age at First Child 21 Most Recent Bone Density 02/03/2012 Sexually Active? Y Age of first menstrual cycle 13 Date of Last Pap Smear 04/27/2021 Sexual Problems? N LMP Unknown N Obstetrics History GPAL:G 1 P 0 0 0 1 Type Value Living 1 Total 1 Past Encounters Encounter ID Performer Location Encounter Start Date Encounter Closed Date Diagnosis/Indication Diagnosis SNOMED-CT Code Diagnosis ICD10 Code Diagnosis Note [id number] Karina Jones [facility] [address] [address] 04/27/2021 09:19:17 04/27/2021 10:22:47 Gynecologic examination 08891842 Z01.419 Take Calcium with Vitamin D 12-1500mg daily. Do monthly self breast exams. It is advised to get annual flu shot in the fall and she could obtain at [facility] or [facility] If you haven't received the Tdap vaccine in the last 10 years you should obtain one as well. Have mammogram yearly, bone density every 2-3 years and colonoscop y every 5-10 years depending on findings and history. Engage in daily exercise of low impact aerobic exercise 45-60 minutes 4-5 times weekly. Avoid tobacco and illicit drugs as well as using moderation with alcohol intake less than 1-2 8 oz beverages daily. This lifestyle behavior pattern will lead to less health conditions and longer life span. If BMI greater than 25 weight watchers or dietary consult advised. Questions have been answered. Patient appears to understand instructio ns, but if you have any further questions call or respond to this email Pap/hpv sentSTD declinedGe netic screen discussedM ammo/dexa orderedCol on UTD per pcp Postmenopausal state [id number] 92047 Z78.0 Postmenopa usal bleeding [id number] N95.0 Had an instance of PMB spotting in December that lasted a day with light panty liner & then one in February 2021 x 1 day.There was an area of irritation on top of cervix on exam but it appears more from postmenopa usal changes versus a lesion.We agreed to do an updated TVUS to ensure no other issues. [id number] Lisa Lang [place] [address] [address] 05/08/2021 16:32:52 05/08/2021 18:20:58 Postmenopausal bleeding [id number] N95.0 [id number] Ephraim Alvarado MD [place] [address] [address] 05/14/2021 16:39:48 05/15/2021 13:36:37 Cyst of ovary 91291522 N83.209 Postmenopa usal bleeding 19693105 N95.0 this patient is a 60-year-ol d female with postmenopa usal bleeding, and a complex ovarian cyst. We have agreed to perform hysterosco py D&C to evaluate the endometriu m. We will do this in the hospital. She understand s the risks, benefits, and alternativ es. She has completed the informed consent process and is ready to proceed. [id number] Ephraim Alvarado MD [place] [address],[place] [address] 07/25/2021 18:22:49 07/26/2021 14:41:29 Postmenopausal bleeding [id number] N95.0 this patient is a 60-year-ol d female who presents for follow-up on postmenopa usal bleeding. Reason the endometriu m was performed. Is benign. Patient has not had any bleeding. We will observe for bleeding. She is due back for a follow-up ultrasound on the complex ovarian cyst. [id number] Magdalena Bautista [place] [address],[place] [address] 08/02/2021 17:04:23 08/03/2021 12:39:18 Cyst of right ovary [id number] N83.201 [id number] Ephraim Alvarado MD [place] [address],[place] [address] 08/18/2021 10:23:44 08/20/2021 15:07:06 Cyst of ovary 76348028 N83.209 Postmenopa usal bleeding 09708279 N95.0 This patient is a 6-year-old female who presents for follow-up on ovarian cyst. Her ovarian cyst has resolved. We repeated an ultrasound about a week back. She has no symptoms. We evaluate her postmenopa usal bleeding. She had hysterosco py D&C in the hospital and the biopsy showed benign endometriu m. She will follow up as needed. We spent 15 minutes face-to-fa ce discussing her ultrasound results. More than 50% was counseling . I shared the images with her. We talked about her postmenopa usal bleeding. We talked about recent possible ovulation. She is status post endometria l ablation. [id number] [facility] [address] [address] 05/03/2022 10:57:33 05/03/2022 12:12:20 Gynecologic examination [id number] Z01.419 Z11.51 Take Calcium with Vitamin D 12-1500mg daily. Do monthly self breast exams. It is advised to get annual flu shot in the fall and she could obtain at [facility] or [facility] care clinic. If you haven't received the Tdap vaccine in the last 10 years you should obtain one as well. Have mammogram yearly, bone density every 2-3 years and colonoscop y every 5-10 years depending on findings and history. Engage in daily exercise of low impact aerobic exercise 45-60 minutes 4-5 times weekly. Avoid tobacco and illicit drugs as well as using moderation with alcohol intake less than 1-2 8 oz beverages daily. This lifestyle behavior pattern will lead to less health conditions and longer life span. If BMI greater than 25 weight watchers or dietary consult advised. Questions have been answered. Patient appears to understand instructio ns, but if you have any further questions call or respond to this email Pap/hpv sentSTD Screen declinedGe netic Screen discussedC olon Screen PCPDexa Screen PCPRoutine Labs PCPMammo ordered Screening mammography [id number] Z12.31 Health Concerns Section Related Observation LastModified by Organization Detai ls LastModified Time None Recorded Concern Status LastModified by Organization Details LastModified Time None Recorded Advance Directives Directive N: Payers Encounter Date Sequence Insurance Name Policy Number Policy Dang Covered Member ID Dang Member ID Guarantor Name 07/25/2021 1 [facility] [employer] (O) [address] [id number] OI [id number] ADRIANA Pascual 08/02/2021 1 [facility] [employer] (PPO) [address] [id number] OI [id number] SOEvan Alanizee 08/18/2021 1 [facility] (PPO) [address] Tesha P[address]ual [id number] OI [id number] SOEvan Mclaughline Tesha Mastahee 05/03/2022 1 [facility] [employer] (O) [address] Tesha [address]ual [id number] OI [id number] SOI Babita Pascual Notes Date Note Type Note Provider Name and Address Organization Details Recorded Time 07/25/2021 text/html this patient is a 60-year-old female who presents for follow-up on postmenopausal bleeding. Reason the endometrium was performed. Is benign. Patient has not had any bleeding. We will observe for bleeding. She is due back for a follow-up ultrasound on the complex ovarian cyst. Ephraim Alvarado MD [address], [place], [address], [facility] 07/25/2021 18:53:51 08/18/2021 text/html This patient is a 6-year-old female who presents for follow-up on ovarian cyst. Her ovarian cyst has resolved. We repeated an ultrasound about a week back. She has no symptoms. We evaluate her postmenopausal bleeding. She had hysteroscopy D&C in the hospital and the biopsy showed benign endometrium. She will follow up as needed. We spent 15 minutes fauo-my-rakq discussing her ultrasound results. More than 50% was counseling. I shared the images with her. We talked about her postmenopausal bleeding. We talked about recent possible ovulation. She is status post endometrial ablation. Ephraim Alvarado MD [address], [place], [address], [facility] 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 Post-MenopausalRepor percy bypatient.Menopausal Symptoms:no menopausal symptoms; normal vaginal lubrication Vaginal Bleeding:history of menopause having occurred; no history of post menopausal bleeding Urinary Symptoms:no hematuria; no incontinence; no nocturia; no urinary frequency Vulva:no genital lesion; no vulvar atrophy Vagina:normal vaginal discharge; no vaginal atrophy Breast:no breast lump; no nipple discharge; no breast pain Sexual Complaints:no sexual complaints Psychological Symptoms:no depression; no anxiety Preventive Measures:encourage regular mammograms starting age 40; encourage self breast examination; encourage regular exercise; encourage no tobacco use; needs to schedule mammogram; history of recent colonoscopy HARI Sage- [address], [place], [address], [facility] 05/03/2022 11:43:02 OBGyn Episode Ob Episode Information Episode Created Date Number of Fetuses Patient Bloodtype Patient rh Status Prepregnancy Weight lbs Domestic Partner Domestic Partner Phone Father Name Sustainability Engineer Status 04/27/19 22 1 CLOSED Fetus Data First Name Last Name Admitted to NICU Weight (g) Sex Living Outcome Pediatric Complications Fetus ID Race Codes Race Delivery Type M [id number] Vaginal Delivery Johny Calculation Initial Johny Date Initial Exam Date Initial Exam Provider Initial Ultrasound Date Last Menstrual Period Date Ultra Sound Weeks Gestation 0 Eighteen To Twenty Week Johny Update Ultra Sound Date Fundal Height At Umbil Quickening Date Ultra Sound Latest Weeks Gestation Final Johny Confirmed By Final Johny Confirmed Date Final Johny Date Ultra Sound Latest Days Gestation 0 0 Menstrual History Last Menstrual Date Menses Monthly On Bcp Conception Prior Menses Frequency Hcg Plus Date Menarche Onset Age Delivery Information Delivery Date Delivery Type Labor Anesthesia Weeks Gestation Incision Type Labor Labor Length Hrs Delivered By Post Complications Tubal Sterilization Discharge Date Comments Discharge Information Feeding Method Contraceptive Method Maternal HG B and HCT Levels
--- OUTSIDE RECORDS SUMMARY | 2024-06-08 17:12 | XMS_ITS | Encounter Summary ---
Author Organization [facility] Address Count includes the [facility] [place] [address] Care Team Providers Care Office Administration Instructor Name Role Phone Dorota Campbell MD Primary Care Provider [phone] Antoinette Ruiz PA-C Unavailable [phone] Encounter Details Date Type Department Care Team (Late st Contact Info) Description 06/05/2022 Smart[employer] Message Enc [facility] Family & Internal Medicine [address] [address] [facility] labs/refills Social History Tobacco Use Types Packs/Day Years Used Date Smoking Tobacco: Never Smokeless Tobacco: Never Comments:na Alcohol Use Standard Drinks/Week Comments Yes 0 (1 standard drink = 0.6 oz pur e alcohol) AUDIT-C Answer Date Recorded Q1: How often do you have a drink containing alc ohol? Monthly or less 05/05/2020 Average Number of Drinks Not on file 021 Frequency of Binge Drinking Not on file 04/24 PHQ-2 Answer Date Recorded Patient Health Questionnaire-2 Score 0 04/16/2022 Comments No Sex and Gender Information Value Date Recorded Sex Assigned at Female 04/01/2024 4:04 PM NURSING TECHNICIAN Legal Sex Female 5:30 PM CDT Gender Identity Female 04/01/2024 4:04 PM NURSING TECHNICIAN Sexual Orientation Not on file COVID-19 Exposure Response Date Recorded In the last 10 days, have yo u been in contact with someone who was confirmed or suspected to have Coronavirus/COVID-19? No / Unsure 06/05/2022 9:56 AM CDT documented as of this encounter Plan of Treatment Upcoming Encounters Date Type Department Care Team (Late st Contact Info) Description 06/22/2024 3:40 PM CDT Office Visit [facility] [place] [address] [place] [address] Gaudencio Correa MD [address] [place] [address] [place] [address] 11/11/2024 4:20 PM CDT Office Visit [facility] Family & Internal Medicine [facility] [address] [place] [address] [place] [id number] [place] [address]. [address] [place] [address] documented as of this encounter Visit Diagnoses Not on filedocumented in this encounter Additional Health Concerns Infection Onset Date Last Indicated Resolved Time COVID-19 Rule Out 02/23/2024 02/23/2024 02/23/2024 4:27 PM NURSING TECHNICIAN documented as of this encounter Care Teams Office Administration Instructor Relationship Specialty Start Date End Date Dorota Campbell MD [address] [place] [address]. [address] [place], [place] [id number] PCP - General FAMILY PRACTICE 04/02/22 Antoinette Ruiz PA-C [address] [place] [address] PHYSICIAN CRANBERRY GROWER 06/17/23 documented as of this encounter
--- OUTSIDE RECORDS SUMMARY | 2024-06-08 17:12 | XMS_ITS | Continuity of Care Document ---
Author Organization [facility] Address [address] [place] [address] Phone Care Team Providers Care Youth Pastor Name Role Phone Rose OD, Mickey Unavailable Unavailable Procedures Procedure Date Contact Lens Hydrophilic, Spherical Medical Tax Contact Lens Check Contact Lens Check Contact Lens Check BF Polycarb Sphcyl [place] To +/-4d .12-2d Anti-reflective Coating Miscellaneous Vision Service - Supplies Frames Deluxe Lens-Index>1.66Plas;>1.80Glas 0 Progressive Lens Per Lens Contact Lens Check Eye Exam & Treatment Refraction Contact Lens Check Contact Lens Hydrophilic, Spherical Tax - Medical Office/outpatient Visit, Est Eye Exam, New Patient Advance Directives Directive Yes / No Effective Date File Name No Information Encounters Encounter Description Practice Location Reason(s) For Visit Diagnoses Date Provider Providers [facility], [address], [place], [place], [id number], tel:[phone] [facility] No Information Sep-3 0-201 0 Rose OD Mickey. [address] , [address], [place], [address], [place]. tel:[phone] [facility], [address], [place], [place], [id number], [place] tel:[phone] [facility] No Information Sep-2 3-201 0 Rose OD Mickey. [address] , [address], [place], [address], [place]. tel:[phone] [facility], [address] [place] [address] [address], [place], [place], [address], [place] tel:[phone] [facility] No Information Sep-1 6-201 0 Rose OD Mickey. [address] , [address], [place], [address], [place]. tel:[phone] [facility], [address], [place], [place], [address], [place] tel:[phone] [facility] No Information Sep-0 2-201 0 Rose OD Mickey. [address] , [address], [place], [address], [place]. tel:[phone] [facility], [address], [place], [place], [address], [place] tel:[phone] [facility] No Information Sep-0 1-201 0 [facility] . [address] [facility], [address], [place], [place], [address], [place]. tel:[phone] Referring Provider: Mickey Rose OD A, [address], [place], [address]. tel:[phone] sulting Provider: Susu Robbins, [address] [place], [address]. tel:[phone] [facility], [address] [place] [address] [address], [place], [place], [address], [place] tel:[phone] [facility] No Information 8-201 0 Rose OD Mickey. [address] , [address], [place], [place], [facility], [place]. tel:[phone] [facility], [address] [place] [address] [address], [place], [place], [address], [place] tel:[phone] [facility] No Information 9-201 0 Rose OD Mickey. [address] , [address], [place], [place], [facility], [place]. tel:[phone] [facility], [address] [place] [address] [address], [place], [place], [address], tel:[phone] [facility] No Information 5-201 0 Rose OD Mickey. [address] , [address], [place], [place], [facility], [place]. tel:[phone] Office/outpat ient Visit, [facility], [address] [place] [address] [address], [place], [place], [address], [place] tel:[phone] [facility] No Information 8-201 0 Rose OD Mickey. [address] , [address], [place], [place], [facility], [place]. tel:[phone] [facility], [address] [place] [address] [address], [place], [place], [address], [place] tel:[phone] [facility] No Information b-0 4-201 0 Rose OD Mickey. [address] , [address], [place], [place], [facility], [place]. tel:[phone] Family History Family Member Type Diagnosis Age At Onset No Information Payers Payer name Insurance type Covered green party ID Margaux short(s) [employer] Plan [id number] Social History Type Description Quantity Date Captured Comments Sex Female Smoking Status No Information Chief Complaint And Reason For Visit No Information Reason For Referral Reason For Referral No Information History Of Present Illness Encounter Date Complaint History Of Prese nt Illness No Information Functional Status Date Functional Assessmen t No Information Instructions Date Instruction Additional Infor mation No Information Assessments Type Assessment Date No Information Patient Care Teams Name Effective Dates (start - stop) Status Members No Information
--- OUTSIDE RECORDS SUMMARY | 2024-06-08 17:12 | XMS_ITS ---
[...] - Completed famotidine 20 MG Oral Tablet [id number] 0:00:00Z - Completed liothyronine sodium 0.005 MG [...] - Completed famotidine 20 MG Oral Tablet [id number] 0:00:00Z - Completed 1 ML secukinumab 150 [...] - Completed famotidine 20 MG Oral Tablet [id number] 0:00:00Z - Completed pentoxifylline 400 MG Extend [...] - Completed famotidine 20 MG Oral Tablet [id number] 0:00:00Z - Completed hydrochlorothiazide 12.5 MG Oral Tablet - Completed brimonidine tartrate 2 MG/ML Ophthalmic Solution - Completed ergocalciferol 1.25 MG Oral Capsule 00:00:00Z - Completed famotidine 20 MG Oral Tablet [id number] 0:00:00Z - Completed desoximetasone 2.5 MG/ML Top [...]
--- OUTSIDE RECORDS SUMMARY | 2024-06-08 17:12 | XMS_ITS | Encounter Summary ---
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 Maybe 1 to 2 times a year. B1300 Health Literacy Answer Date Recor ded How often do you need to hav e someone help you when you read instructions, pamphlets, or other written material from your doctor or pharmacy? Never 06/30/2023 [facility] Utilities Answer Date Recorded In the past 12 months has e electric, gas, oil, or water [employer] threatened to shut off services in your home? No 06/30/2023 Humiliation, Afraid, Rape, and Kick questionnair e Answer Date Recorded Within the last year, have y ou been afraid of your partner or ex-partner? No 06/30/2023 Within the last year, have y ou been humiliated or emotionally abused in other ways by your partner or ex-partner? No Within the last year, have y ou been kicked, hit, slapped, or otherwise physically hurt by your partner or ex-partner? No 06/30/2023 Within the last year, have y ou been raped or forced to have any kind of sexual activity by your partner or ex-partner? No 06/30/2023 AUDIT-C Answer Date Recorded Q1: How often do you have a drink containing alc ohol? Monthly or less 05/05/2020 Average Number of Drinks Not on file Frequency of Binge Drinking Not on file 04/24 Overall Financial Resource Strain (CARDIA) Answe r Date Recorded How hard is it for you to pa y for the very basics like food, housing, medical care, and heating? Not hard at all 06/30/2023 PHQ-2 Answer Date Recorded Patient Health Questionnaire-2 Score 0 07/15/2023 [facility] - Occupational Stress Questionnaire Answer Date Recorded Do you feel stress - tense, restless, nervous, or anxious, or unable to sleep at night because your mind is troubled all the time - these days? Not at all 06/30/2023 Exercise Vital Sign Answer Date Recorde d On average, how many days pe r week do you engage in moderate to strenuous exercise (like a brisk walk)? 0 days 06/30/2023 On average, how many minutes do you engage in exercise at this level? 0 min 06/30/2023 Hunger Vital Sign Answer Date Recorded Within the past 12 months, y ou worried that your food would run out before you got the money to buy more. Never true 06/30/19 24 Within the past 12 months, t he food you bought just didn't last and you didn't have money to get more. Never true 06/30/2023 PRAPARE - Transportation Answer Date Re corded In the past 12 months, has l ack of transportation kept you from medical appointments or from getting medications? No 07/2023 In the past 12 months, has l ack of transportation kept you from meetings, work, or from getting things needed for daily living? No 06/30/2023 Housing Stability Vital Sign Answer David e Recorded In the last 12 months, was t here a time when you were not able to pay the mortgage or rent on time? No 06/30/2023 In the past 12 months, how m any times have you moved where you were living? 1 06/30/2023 At any time in the past 12 m [facility], were you homeless or living in a chcf (including now)? No 06/30/2023 Comments No Sex and Gender Information Value Date Recorded Sex Assigned at Female 04/01/2024 4:04 PM CAGE CASHIER Legal Sex Female 5:30 PM CDT Gender Identity Female 04/01/2024 4:04 PM CAGE CASHIER Sexual Orientation Not on file documented as of this encounter Functional Status * Are you deaf or do you have serious difficulty hearing Answer Date of Assessment Author Status No 06/30/2023 11:52 AM MANUELITOT Fay Morales RN Active * Are you blind or do you have serious difficulty seeing, even when wearing glasses? Answer Date of Assessment Author Status No 06/30/2023 11:52 AM MANUELITOT Fay Morales RN Active * Do you have serious difficulty walking or climbing stairs? Answer Date of Assessment Author Status Yes 06/30/2023 11:52 AM MANUELITOT Fay Morales RN Active * Do you have difficulty dressing or bathing? Answer Date of Assessment Author Status No 06/30/2023 11:52 AM MANUELITOT Fay Morales RN Active * Because of a physical, mental, or emotional condition, do you have difficulty doing errands alone such as visiting a doctor's office or shopping? Answer Date of Assessment Author Status No 06/30/2023 11:52 AM Fay Styles RN Active documented as of this encounter Mental Status * Because of a physical, mental, or emotional condition, do you have serious difficulty concentrating, remembering, or making decisions? Answer Entry Date Author Status No 06/30/2023 11:52 AM Fay Styles RN Active documented in this encounter Plan of Treatment Upcoming Encounters Date Type Department Care Team (Late st Contact Info) Description 06/22/2024 3:40 PM CDT Office Visit [facility] - [place] [address] [place] [address] Gaudencio Correa MD [address] [facility] [address] [place] [address] 11/11/2024 4:20 PM CDT Office Visit [facility] Family & Internal Medicine [facility] [address] [place] [address] [place] [address] [facility]. [address] [place] [id number] documented as of this encounter Visit Diagnoses Not on filedocumented in this encounter Additional Health Concerns Infection Onset Date Last Indicated Resolved Time COVID-19 Rule Out 02/23/2024 02/23/2024 02/23/2024 4:27 PM CAGE CASHIER documented as of this encounter Care Teams Drink Waiter Relationship Specialty Start Date End Date Dorota Campbell [place] [id number] [place] [address]. [address] [place] [id number] PCP - General FAMILY PRACTICE 04/02/22 Antoinette Ruiz PA-C [address] [place] [address] PHYSICIAN [facility] 06/17/23 documented as of this encounter
--- OUTSIDE RECORDS SUMMARY | 2024-06-08 17:12 | XMS_ITS | Clinical Summary ---
Author Organization [facility] Address [address] [place] [address] Care Team Providers Care Demand Manager Name Role Phone Dorota Campbell MD Primary Care Provider [phone] Antoinette Ruiz PA-C Unavailable [phone] Allergies Active Allergy Reactions Criticality Noted Date Comments Sulfamethoxazole-Trimet hoprim Rash Low 05/05/2020 Chicken Allergy Rash Low 10/16/2022 chicken derived Eggs Unknown,Rash Low 04/30/2012 egg extract Influenza Vaccines Other (see comment) 06/17/19 24 fever Leflunomide Rash Medium 05/29/2021 Penicillins Hives,Throat swelling Medium 12/13/2010 Medications vitamin C 1000 MG tabletIndications :Supplement Take 2 tablets (2,000 mg total) by mouth daily. Indications: Supplement 016 Active clobetasol 0.05 % cream Apply topically 2 (two) times daily. 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 Indications: Gluacoma 014 Active fluticasone propionate 50 MCG/ACT nasal sprayIndications: allergies 1 spray by Nasal route 2 (two) times daily. Indications: allergies 016 Active Glucosamine-Chond roitin 750-600 MG TabIndications:Stanley pplement Take 2 capsules by mouth daily. Indications: Supplement Active magnesium oxide 250 MG tabletIndications :supplement Take 1 tablet (250 mg total) by mouth daily. Indications: supplement 200mg Active melatonin 5 MG tabletIndications :Insomnia Take 1 tablet (5 mg total) by mouth nightly as needed. Indications: Insomnia Active pentoxifylline CR (TRENTAL) 400 MG tabletIndications :Poor circulation Take 1 tablet (400 mg total) by mouth 3 (three) times daily. Indications: Poor circulation Active Secukinumab (COSENTYX SENSOREADY PEN) 150 MG/ML Solution Auto-injectorIndi cations:Arthritis Inject 150 mg into the skin every 28 days. Indications: Arthritis 023 Active cetirizine (ZYRTEC) 10 MG tabletIndications :Allergies cetirizine 10 mg tablet TAKE 1 TABLET BY MOUTH ONCE DAILY NEEDED FOR ALLERGIES 90 tablet 023 Active desoximetasone (TOPICORT) 0.25 % cream Apply topically 2 (two) times daily. 023 Active brimonidine (ALPHAGAN) 0.2 % ophthalmic solutionIndicatio ns:Gluacoma Place 1 drop into both eyes 2 (two) times a day. Indications: Gluacoma 024 Active NON FORMULARY Take 6 tablets by mouth daily. [facility] Spirulina supplement Active guaiFENesin ER (MUCINEX) 600 MG 12 hr tabletIndications :Allergies Take 2 tablets (1,200 mg total) by mouth 2 (two) times daily as needed for Congestion. Indications: Allergies Active vitamin D3 (CHOLECALCIFEROL) 25 mcg tabletIndications :Supplement Take 1 tablet (25 mcg total) by mouth daily. Indications: Supplement Active Biotin (BIOTIN 5000) 5 MG CapIndications:Stanley pplement Take 1 tablet by mouth daily. Indications: Supplement Active Lysine HCl 500 MG TabIndications:Stanley pplement Take 2 capsules by mouth daily. Indications: Supplement Active tacrolimus (PROTOPIC) 0.1 % ointment APPLY OINTMENT TO LEGS EXTERNALLY TWICE DAILY Active calcium carb-cholecalcife rol (CALTRATE 600+D) 600-20 MG-MCG tablet Take 1 tablet by mouth daily. Active hydroCHLOROthiazi de (MICROZIDE) 12.5 MG tabletIndications :HTN Take 1 tablet (12.5 mg total) by mouth daily. Indications: HTN 90 tablet 3 024 Active levothyroxine (SYNTHROID) 100 MCG tabletIndications :Acquired hypothyroidism Take 1 tablet (100 mcg total) by mouth every morning. 90 tablet 3 024 Active liothyronine (CYTOMEL) 5 MCG TabIndications:Hy pothyroidism Take 1 tablet (5 mcg total) by mouth daily. Indications: Hypothyroidism 90 tablet 3 024 Active losartan (COZAAR) 100 MG tabletIndications :HTN Take 1 tablet (100 mg total) by mouth daily. Indications: HTN 90 tablet 3 024 Active spironolactone (ALDACTONE) 25 MG tabletIndications :Edema Take 1 tablet (25 mg total) by mouth daily. Indications: Edema 90 tablet 3 024 Active traMADol (ULTRAM) 50 MG tabletIndications :S/P total knee replacement, right TAKE 1 TABLET BY MOUTH EVERY 6 HOURS NEEDED FOR PAIN AND TAKE ALONG WITH ONE TYLENOL 325 MG TABLET 15 tablet 024 Active ibuprofen (MOTRIN) 200 MG tablet Take 1 tablet (200 mg total) by mouth every 6 (six) hours as needed for Pain. Active ketoconazole (NIZORAL) 2 % creamIndications: Tinea corporis Apply topically daily. 60 g 024 Active Menaquinone-7 (VITAMIN K2 OR) Acti ve famotidine (PEPCID) 20 MG tabletIndications :GERD Take 1 tablet by mouth twice daily 60 tablet 025 Active famotidine (PEPCID) 20 MG tabletIndications :GERD Take 1 tablet by mouth twice daily 60 tablet 025 2024 Discontinued Active Problems Problem Noted Date Diagnosed Date Postoperative stiffness of t otal knee replacement, subsequent encounter 10/09/2023 S/P total knee replacement, right 06/26/2023 Primary osteoarthritis of right knee 05/20/2023 [facility]DC current use of therapeutic drug 2020 Overview (01/28/2024): TB quant negative: 07/2020 Hepatitis B & C negative: 07/2020 Last Assessment & Plan: TB quant negative: 07/2020 Hepatitis B & C negative: 07/2020 Chronic pain of right knee 04/25/2020 Overview (01/28/2024): Last Assessment & Plan: Hx of patellar dislocation laterally. Saw ortho in the past (2017) for intra-articular steroid injection with benefit. Returned to ortho Dr. Duff for repeat CSI on 05/05/20 and again on 09/10/21 with good relief of symptoms. Recently had genicular nerve ablation on 08/12/22 per IR. If she notes good relief then can stop taking Celebrex. Essential hypertension 04/25/2020 Psoriatic arthritis ([facility]) 01/25/2020 Overview (01/28/2024): Last Assessment & Plan: Low cdai. Minimal synovitis without tenderness on exam. Held leflunomide as this was causing a rash. Restarted Cosentyx 150mg SQ 07/2021 with overall improvement of joint pain. Continue Cosentyx 150mg [id number]. Can consider increasing dose to 300mg in the future if symptoms would progress. Routine labs today. Follow up in 6 months. Sooner if needed. BMI 20.0-20.9, adult 03/22/2018 Overview (01/28/2024): Body mass index (BMI) 40.0-44.9, adult;Recorded Elsewhere: No Location: [facility] Source: EHR Chronic: N Practice ID: [id number] Billable Time: 01:00:00 PM Arthritis of knee, right 07/23/2017 Menopause present 03/19/2017 Overview (01/28/2024): Symptoms such as flushing, sleeplessness, headache, lack of concentration, associated with natural (age-related) menopause;Recorded Elsewhere: No Location: [facility] Source: EHR Chronic: N Practice ID: [id number] Billable Time: 01:30:00 PM Leukocytosis 03/04/2016 Overview (01/28/2024): Elevated white blood cell count, unspecified;Practice ID: [id number] Glaucoma, bilateral 11/27/2015 Dysphagia 03/16/2015 Rheumatoid arthritis ([facility]) 4 Obstructive sleep apnea 02/02/2013 Primary hypersomnia 02/01/2013 Esophageal reflux 09/02/2012 Fibromyalgia 09/02/2012 Generalized osteoarthritis of multiple sites 11/2012 Hypothyroidism 09/02/2012 Psoriasis 09/02/2012 Rosacea 09/02/2012 Morbid obesity 05/27/2012 Thyroid activity decreased 05/27/2012 Leukocytosis 12/18/2011 Overview (01/28/2024): LEUKOCYTOSIS NOS;Recorded Elsewhere: No Location: [facility] Source: EHR Chronic: N Practice ID: [id number] Billable Time: 03:30:00 PM Leukopenia 07/03/2011 Overview (01/28/2024): LEUKOCYTOPENIA NOS;Practice ID: [id number] Proteinuria 07/03/2011 Overview (01/28/2024): Proteinuria;Practice ID: [id number] Urinary incontinence 07/03/2011 Overview (01/28/2024): Urinary incontinence, unspecified;Recorded Elsewhere: No Location: [facility] Source: EHR Chronic: N Practice ID: [id number] Billable Time: 02:45:00 PM Urinary tract infectious disease 07/03/2011 Overview (01/28/2024): Urinary Tract Infection;Recorded Elsewhere: No Location: [facility] Source: EHR Chronic: N Practice ID: [id number] Billable Time: 02:45:00 PM Encounters Date Type Department Care Team Description 05/11/2024 7:40 AM CDT Office Visit [facility] Orthopedic & Sports Medicine [facility] [address] [place] [address] Howard Stewart PA-C Follow Up (Right Knee ) 05/11/2024 Scan [facility] HE[facility] INFO SRVCS Scanned, Doc [facility] 05/11/2024 Travel 05/07/2024 [employer]Silicon Message Enc [facility] [address] [address] [place], [facility] Provider appointment 05/06/2024 4:40 PM CDT Office Visit [facility] [address] [address] Dorota Campbell MD Follow Up 05/06/2024 Telephone [facility] [address] [address] Dorota Campbell MD Referral 05/06/2024 Travel 05/05/2024 Orders Only [facility] [address] [place] [address] Howard Stewart PA-C 04/21/2024 Scan Linkdex SRVCS Scanned, [facility] 04/16/2024 9:55 AM DIRECTOR OF ORTHOPEDICS - 04/16/2024 11:59 PM DIRECTOR OF ORTHOPEDICS Hospital Encounter [facility] [address] [place] [phone] Dorota Campbell MD Discharge Disposition: Home or Self Care (Routine Discharge) 04/16/2024 Travel 04/01/2024 4:40 PM DIRECTOR OF ORTHOPEDICS Office Visit [facility] [address] [phone] Dorota Campbell MD Developmental Behavioral Physician Exam (Well woman exam) 04/01/2024 9:37 AM DIRECTOR OF ORTHOPEDICS - 04/01/2024 11:59 PM DIRECTOR OF ORTHOPEDICS Hospital Encounter [facility] [address] [place] [address] Dorota Campbell MD Discharge Disposition: Home or Self Care (Routine Discharge) 04/01/2024 Travel 03/11/2024 Scan [facility] HEALTH INFO SRVCS Scanned, Doc [facility] from Last 3 Months Immunizations Immunization Administration Dates Next Due Tdap (Generic) 04/23/2017 Family History Medical History Relation Comments Heart Attack Brother 1 Hypertension Brother 1 Heart Disease Brother 2 Arthritis Father All of my famili Hypertension Father No Known Problems Maternal Aunt No Known Problems Maternal Grandfather No Known Problems Maternal Grandmother No Known Problems Maternal Uncle Anemia Mother Glaucoma Mother Hypertension Mother Vision loss Mother None. No Known Problems Paternal Aunt No Known Problems Paternal Grandfather No Known Problems Paternal Grandmother No Known Problems Paternal Uncle No Known Problems Sister Relation Status Comments Brother 1 Brother 2 Father Maternal Aunt Maternal Grandfather Maternal Grandmother Maternal Uncle Mother Paternal Aunt Paternal Grandfather Paternal Grandmother Paternal Uncle Sister Social History Tobacco Use Types Packs/Day Years Used Date Smoking Tobacco: Former Cigarettes Passive Smoke Exposure: Never Smokeless Tobacco: Never Tobacco Cessation:Counseling Given: No Comments:Smoked 1ppd x 22yrs Quit 1998 Alcohol [...] from your doctor or pharmacy? Never 06/30/2023 [facility] Utilities Answer Date Recorded In the past 12 months has [facility] [employer] gas, oil, or water [employer] threatened to shut off services in your [...] Date Recorded Patient Health Questionnaire-2 Score 0 05/11/2024 [facility] Occupational Stress Questionnaire Answer Date Recorded [...] any time in the past 12 m [facility], were you homeless or living in a longterm (including now)? No 06/30/2023 Comments No Sex and Gender Information Value Date Recorded Sex Assigned at Female 04/01/2024 4:04 PM DIRECTOR OF ORTHOPEDICS Legal Sex Female 5:30 PM CDT Gender Identity Female 04/01/2024 4:04 PM DIRECTOR OF ORTHOPEDICS Sexual Orientation Not on file Last Filed Vital Signs Vital Sign Reading Time Taken Comments Blood Pressure 119/78 05/11/2024 7:57 AM CDT Pulse 76 05/11/2024 7:57 AM CDT Temperature 37.1 C (98.8 F) 05/11/2024 7:57 AM CDT Respiratory Rate 16 05/06/2024 4:44 PM CDT Oxygen Saturation 97% 05/11/2024 7:57 AM CDT Inhaled Oxygen Concentration - - Weight 99.2 kg (218 lb 12.8 oz) 05/11/2024 7:57 AM CDT Height 160 cm (5' 3 ) 05/11/2024 7:57 AM CDT Body Mass Index 38.76 05/11/2024 7:57 AM CDT Plan of Treatment Upcoming Encounters Date Type Department Care Team (Late st Contact Info) Description 06/22/2024 3:40 PM CDT Office Visit [facility] [place] [address] [place] [address] Gaudencio Correa MD [address] [phone]- 11/11/2024 4:20 PM CDT Office Visit [facility] [address] [address] Dorota Campebll MD [address] [place] [address]. [address] [place] [phone] Health Maintenance Due Date Last Done Comments COVID-19 Vaccine (#1) 1965 Pneumococcal Vaccine: Pediatrics (0 to 5 Years) and At-Risk Patients (6 to 49 Years) (1 of 2 - PCV) 1966 Zoster Vaccines (1 of 2) 12/01/1979 Cervical Cancer Screening Pa p with HPV Testing (Age 30 to 64) Every 5 Years 1990 Colorectal Cancer Screening Colonoscopy (10 Years) 04/14/2020 04/14/2015 RSV Immunization or 60+ Years (1 - Risk 60-74 years 1-dose series) 2020 Mammogram Screening 07/20/2024 07/20/2022 Annual Physical 04/01/2025 04/01/2024 Cervical Cancer Screening Pa p Smear (Age 30 to 64) Every 3 Years 04/01/2027 04/01/2024, 05/03/2022 Cervical Cancer Screening wi th HPV 04/01/2027 DTaP, Tdap and Td Vaccines ( 2 - Td or Tdap) 04/23/2027 04/23/2017 Hepatitis C Completed 04/16/2024 PHQ-2 (Physician [facility]) Completed 05/11/2024 Meningococcal B Vaccine Aged Out No l onger eligible based on patient's age to complete this topic Meningococcal Vaccine Aged Out No mary nroa eligible based on patient's age to complete this topic RSV Immunizations Under 20 Months Aged Out No longer eligible b ased on patient's age to complete this topic Medical Devices Implanted Type Area Shore Man Device Identifier Shelf Expiration Date Model / Serial / Lot Cement Full Dose - [id number] Implanted:Qty: 1 on 06/30/2023 by Gaudencio Correa MD at [facility] Cement Implant Right: Knee [employer] - DIV [employer] RADHA [id number] 06/23/2025 6191-1-001 / / [id number] Cement Bone Tobramycin Simplex - [id number] Implanted:Qty: 1 on 06/30/2023 by Gaudencio Correa MD at [facility] Cement Implant Right: Knee [employer]HA [id number] 11/24/2023 6197-9-010 / / [id number] Journey Ii Bcs Oxinium Bi-Cruciate Stabilized Nonporous Femoral Component Implanted:Qty: 1 on 06/30/2023 by Gaudencio Correa MD at [facility] Knee Components Right: Knee [employer] [place] [id number] 01/17/2033 [id number] / / [id number] Scott Nonporous Tibial Baseplate Implanted:Qty: 1 on 06/30/2023 by Gaudencio Correa MD at [facility] Knee Components Right: Knee [employer] [place] [id number] 02/25/2033 [id number] / / [id number] [facility] Bcs Resurfacing Round Patellar Component Implanted:Qty: 1 on 06/30/2023 by Gaudencio Correa MD at [facility] Knee Components Right: Knee [employer] [place] [id number] 03/15/2033 [id number] / / [id number] Julisa Ii Long Non-Slotted Stem Implanted:Qty: 1 on 06/30/2023 by Gaudencio Correa MD at [facility] Knee Components Right: Knee [employer] [place] [id number] 01/19/2033 [id number] / / [id number] Journey [employer] Bcs Articular Insert Implanted:Qty: 1 on 06/30/2023 by Gaudencio Correa MD at [facility] Knee Components Right: Knee [employer] [place] [id number] 12/23/2032 [id number] / / [id number] Procedures Procedure Name Priority Date/Time Associated Diagnosis Comments XR KNEE RT 3V Routine 05/11/2024 7:50 AM CDT Pain in knee region after total knee replacement, initial encounter HEPATITIS C ANTIBODY Routine 04/16/2024 10:09 AM DIRECTOR OF ORTHOPEDICS Encounter for hepatitis C screening test for low risk patient MAGNESIUM Routine 04/16/2024 10:09 AM DIRECTOR OF ORTHOPEDICS Hypomagnesemia VITAMIN B12 / FOLATE Routine 04/16/2024 10:09 AM DIRECTOR OF ORTHOPEDICS Vitamin B12 deficiency VITAMIN D, 25 OH Routine 04/16/2024 10:0 9 AM DIRECTOR OF ORTHOPEDICS Vitamin D deficiency TSH W/REFLEX Routine 04/16/2024 10:09 AM DIRECTOR OF ORTHOPEDICS Acquired hypothyroidism LIPID PANEL Routine 04/16/2024 10:09 AM DIRECTOR OF ORTHOPEDICS Acquired hypothyroidism COMPREHENSIVE METABOLIC PANEL Routine 04/16/2024 10:09 AM DIRECTOR OF ORTHOPEDICS Acquired hypothyroidism CBC W/DIFF AUTOMATED Routine 04/16/2024 10:09 AM DIRECTOR OF ORTHOPEDICS Acquired hypothyroidism CYTOPATH CERV/VAG THIN LAYER Routine 04/01/2024 12:00 AM DIRECTOR OF ORTHOPEDICS Cervical cancer screening MAMMOGRAM GENERIC (SCAN ORDER) 07/20/2022 COLONOSCOPY Routine 04/14/2015 12:00 AM DIRECTOR OF ORTHOPEDICS from Last 3 Months or Most Recently Relevant to Health Maintenance Results * XR KNEE RT 3V (05/11/2024 7:50 AM CDT) Anatomical Region Laterality Modality Knee Radiographic Alexus ging 05/11/2024 3:46 PM CDT Impressions 05/11/2024 3:51 PM CDT IMPRESSION: 1. Right total knee arthroplasty. 2. No acute abnormality identified. Ordered By: HOWARD STEWART Interpreted By: Shivam Monreal MD, 05/11/2024 3:46 PM Narrative 05/11/2024 3:51 PM CDT Examination: XR KNEE RT 3V Exam time: 05/11/2024 7:48 AM Clinical history: Pain. Recheck knee arthroplasty. Comparison: No prior exam Technique: Upright AP, lateral, and sunrise views Findings: Right total knee arthroplasty changes are present. There is no evidence of fracture or acute osseous abnormality. No radiographic evidence of loosening of arthroplasty components. No radiographic evidence of joint effusion. Procedure Note Shivam Monreal MD - 05/11/2024 Examination: XR KNEE RT 3V Exam time: 05/11/2024 7:48 AM Clinical history: Pain. Recheck knee arthroplasty. Comparison: No prior exam Technique: Upright AP, lateral, and sunrise views Findings: Right total knee arthroplasty changes are present. There is noevidence of fracture or acute osseous abnormality. No radiographicevidence of loosening of arthroplasty components. No radiographic evidenceof joint effusion. IMPRESSION: 1. Right total knee arthroplasty. 2. No acute abnormality identified. Ordered By: HOWARD STEWART Interpreted By: Shivam Monreal MD, 05/11/2024 3:46 PM Howard Stewart PA-C GENERAL IMAGING Final Result * VITAMIN B12 / FOLATE (04/16/2024 10:09 AM DIRECTOR OF ORTHOPEDICS) VITAMIN B12 S/P/B 537 193 - 986 PG/ML 04/16/2024 1:23 PM DIRECTOR OF ORTHOPEDICS [facility] FOLATE 19.6 8.6 - 58.9 NG/ML 04/16/2024 1:23 PM DIRECTOR OF ORTHOPEDICS [facility] 04/16/2024 10:0 9 AM DIRECTOR OF ORTHOPEDICS Dorota Campbell MD LABORATORY Final Result Performing Organization Address City/[facility]/ZIP Co de Phone Number [facility] [address] [place] [address], [place] [phone] * TSH W/REFLEX (04/16/2024 10:09 AM DIRECTOR OF ORTHOPEDICS) Pathologist [facility] TSH 2.024 0.358 - 3.74 uIU/ML 04/16/2024 10:51 AM DIRECTOR OF ORTHOPEDICS [facility] Comment: HIGH DOSES OF BIOTIN MAY INTERFERE WITH THIS TEST RESULT. CORRELATION TO CLINICAL HISTORY AND PRESENTATION RECOMMENDED. FREE T4 NOT INDICATED 04/16/2024 10:0 9 AM DIRECTOR OF ORTHOPEDICS Dorota Campbell MD LABORATORY Final Result Performing Organization Address City/[facility]/ZIP Co de Phone Number [facility] [address] [place] [address], * (ABNORMAL) COMPREHENSIVE METABOLIC PANEL (04/16/2024 10:09 AM DIRECTOR OF ORTHOPEDICS) GLUCOSE 101(H) 70 - 99 MG/DL 04/16/2024 10:51 AM [facility] BUN 22(H) 7 - 18 MG/DL 04/16/2024 10:51 AM [facility] CREATININE S/P/B 0.77 0.55 - 1.02 MG/DL 04/16/2024 10:51 AM [facility] SODIUM S/P/B 139 136 - 145 MMOL/L 04/16/2024 10:51 AM [facility] POTASSIUM S/P/B 4.0 3.5 - 5.1 MMOL/L 04/16/2024 10:51 AM [facility] CHLORIDE S/P/B 103 100 - 108 MMOL/L 04/16/2024 10:51 AM [facility] CO2 23.2 21 - 32 MMOL/L 04/16/2024 10:51 AM [facility] CALCIUM S/P/B 9.7 8.5 - 10.1 MG/DL 04/16/2024 10:51 AM [facility] BILIRUBIN TOTAL S/P/B 0.4 0.2 - 1.2 MG/DL 04/16/2024 10:51 AM [facility] TOTAL PROTEIN S/P/B 7.1 6.4 - 8.2 G/DL 04/16/2024 10:51 AM [facility] ALBUMIN S/P/B 3.9 3.4 - 5.0 G/DL 04/16/2024 10:51 AM [facility] AST 12(L) 15 - 37 U/L 04/16/2024 10:51 AM [facility] ALT 26 14 - 55 U/L 04/16/2024 10:51 AM [facility] ALKALINE PHOSPHATASE S/P/B 133 50 - 136 U/L 04/16/2024 10:51 AM [facility] ANION GAP 12.8 5 - 15 MMOL/L 04/16/2024 10:51 AM [facility] BUN CREATININE RATIO 28.6(H) 6 - 26 04/16/2024 10:51 AM [facility] A/G RATIO 1.2 1.0 - 2.0 RATIO 04/16/2024 10:51 AM [facility] GFR ESTIMATE 87(L) >90 ML/MIN/1.7 3 M2 04/16/2024 10:51 AM [facility] Comment: NOTE: eGFR is not calculated for patients <18 years of age. This is an estimated GFR calculation using the new CKD EPI creatinine equation without race and so does not require a correction factor for race. This estimated GFR should not be used for calculating drug doses. 04/16/2024 10:0 9 AM DIRECTOR OF ORTHOPEDICS us Dorota Campbell MD LABORATORY Final Result [facility] [address] [place] [address], * (ABNORMAL) LIPID PANEL (04/16/2024 10:09 AM [facility]) CHOLESTEROL 155 <200.0 MG/DL 04/16/2024 10:51 AM [facility] TRIGLYCERIDES 119 <150 MG/DL 04/16/2024 10:51 AM [facility] HDL 37(L) >40.0 MG/DL 04/16/2024 10:51 AM [facility] LDL (CALCULATED) 94 <100 MG/DL 04/16/19 10:51 AM [facility] NON HDL CHOLESTEROL 118 <130 MG/DL 04/16 10:51 AM [facility] CHOL/HDL RATIO 4.2 0.0 - 4.5 04/16/2024 10:51 AM [facility] VLDL CALCULATION 24 5 - 55 MG/DL 04/16/2024 10:51 AM [facility] LIPID INTERPRETATION 04/16/2024 10:51 AM [facility] Comment: [facility] REPORT RECOMMENDATIONS: ADULT CHILD LOW RISK: CHOLESTEROL <200 <170 TRIGLYCERIDE <150 --- HDL >=60 --- LDL <100 <110 BORDERLINE: CHOLESTEROL 200-239 170-199 TRIGLYCERIDE 150-199 --- HDL 40-59 --- LDL 100-159 110-129 HIGH RISK: CHOLESTEROL >=240 >=200 TRIGLYCERIDE >=200 --- HDL <40 --- LDL >=160 >=130 04/16/2024 10:0 9 AM DIRECTOR OF ORTHOPEDICS Dorota Campbell MD LABORATORY Final Result [facility] [address] [place] [address], [place] [phone] * HEPATITIS C AB ([facility] ONLY) (04/16/2024 10:09 AM DIRECTOR OF ORTHOPEDICS) Pathologist [facility] HEPATITIS C AB NON-REACTI VE NON-REACTI VE 04/16/2024 3:34 PM DIRECTOR OF ORTHOPEDICS [facility] 04/16/2024 10:0 9 AM DIRECTOR OF ORTHOPEDICS Dorota Campbell MD LABORATORY Final Result [facility] [address] [place] [address], [place] [phone] * (ABNORMAL) CBC W/DIFF AUTOMATED (04/16/2024 10:09 AM DIRECTOR OF ORTHOPEDICS) Pathologist [facility] WBC 5.75 4.4 - 11.0 x10'3/uL 04/16/2024 10:24 AM [facility] RBC 4.56 4.50 - 5.10 x10'6/uL 04/16/2024 10:24 AM [facility] HGB 13.5 12.3 - 15.3 G/DL 04/16/2024 10:24 AM [facility] HCT 40.3 35.9 - 44.6 % 04/16/2024 10:24 AM [facility] MCV 88.4 80.0 - 96.0 FL 04/16/2024 10:24 AM [facility] MCH 29.6 25.3 - 30.9 PG 04/16/2024 10:24 AM [facility] MCHC 33.5 31.0 - 34.1 G/DL 04/16/2024 10:24 AM [facility] RDW 12.8 12.4 - 15.1 % 04/16/2024 10:24 AM [facility] PLT 195 151 - 353 x10'3/uL 04/16/2024 10:24 AM [facility] MPV 9.6 9.6 - 12.0 FL 04/16/2024 10:24 AM [facility] RBC MORPHOLOGY NORMAL 04/16/2024 10:24 AM [facility] PLT MORPH. NORMAL 04/16/2024 10:24 AM [facility] WBC MORPHOLOGY NORMAL 04/16/2024 10:24 AM [facility] LYMPHOCYTES % 30.4 15.8 - 45.0 % 04/16/2024 10:24 AM [facility] NEUTROPHILS % 62.6 42.1 - 71.9 % 04/16/2024 10:24 AM [facility] MONOCYTES % 3.5(L) 5.7 - 12.5 % 04/16/2024 10:24 AM DIRECTOR OF ORTHOPEDICS [facility] EOSINOPHILS 2.6 0.0 - 5.6 % 04/16/2024 10:24 AM [facility] BASOPHILS 0.7 0.0 - 1.3 % 04/16/2024 10:24 AM [facility] ABS. NEUTROPHILS 3.60 1.40 - 6.00 x10'3/uL 04/16/2024 10:24 AM DIRECTOR OF ORTHOPEDICS [facility] IMMATURE GRANS % 0.2 0.0 - 0.5 % 04/16/2024 10:24 AM [facility] ABS. LYMPHOCYTES 1.75 0.80 - 4.70 x10'3/uL 04/16/2024 10:24 AM [facility] 04/16/2024 10:0 9 AM DIRECTOR OF ORTHOPEDICS us Dorota Campbell MD LABORATORY Final Result [facility] [address] [place] [address], [place] [phone] * VITAMIN D, 25 OH (04/16/2024 10:09 AM DIRECTOR OF ORTHOPEDICS) VITAMIN D 25 HYDROXY S/P/B 99 30 - 100 NG/ML 04/16/2024 11:02 AM DIRECTOR OF ORTHOPEDICS [facility] Comment: INTERPRETATION DEFICIENT <20 INSUFFICIENT 20-29 SUFFICIENT 30-100 04/16/2024 10:0 9 AM DIRECTOR OF ORTHOPEDICS us Dorota Campbell MD LABORATORY Final Result Performing Organization Address [facility]/ZIP Co de Phone Number [facility] [address] [place] [address], [place] [phone] * MAGNESIUM (04/16/2024 10:09 AM DIRECTOR OF ORTHOPEDICS) MAGNESIUM 2.0 1.8 - 2.4 MG/DL 04/16/2024 10:51 AM DIRECTOR OF ORTHOPEDICS [facility] 04/16/2024 10:0 9 AM DIRECTOR OF ORTHOPEDICS Dorota Campbell MD LABORATORY Final Result [facility] [address] [place] [address], * CYTOPATH CERV/VAG THIN LAYER [[id number]] (04/01/2024 12:00 AM DIRECTOR OF ORTHOPEDICS) THIN PREP PAP [address] [address] Department of Pathology Pathology Report CERVICAL/VAGINAL PAP SMEAR REPORT Name: ROEL PASCUAL Age: 10 1960 (Age: 63) Location: [facility] Sex: F Collected Date: 04/01/2024 [facility] #: [id number] Date Received: 04/05/2024 Date Reported: 04/06/2024 Provider: DOROTA CAMPBELL MD INTERPRETATION CERVICAL/ENDOCERVI ANIVAL: SATISFACTORY FOR EVALUATION. NEGATIVE FOR INTRAEPITHELIAL LESION OR MALIGNANCY. ATROPHY. Electronically Signed Out By RENALDO Joseph (ASCP) CLINICAL HISTORY Z12.4 CERVICAL CANCER SCREENING SCREENING PAP ThinPrep Pap Test with reflex HR HPV testing for ASCUS/LSIL diagnosis for post-menopausal patient. Date of Last Menstrual Period: UNKNOWN Menstrual Status: Post-Menopausal SPECIMEN SUBMITTED CERVICAL/ENDOCERVI ANIVAL Specimen Received:1 Thin Prep Vial, Image Assisted Pap (SMD) Please note: The Pap smear is not a diagnostic test. It is a screening test. Negative results on combined screening (Pap test and HPV-DNA) have a high negative predictive value (99.1-100 percent) for cervical cancer. The pap test is not effective in detecting cervical adenocarcinoma. [facility] 04/01/2024 04/05/2024 9:1 8 AM DIRECTOR OF ORTHOPEDICS Comment:CERVICAL/ENDOCERVICA L us Dorota Campbell MD PATHOLOGY/CYTOLOGY ORDERABLES Final Result [facility] [address] [place] [address], * MAMMOGRAM GENERIC (07/20/2022) Anatomical Region Laterality Modality Other 07/20/2022 us [facility] Scanned SCANNING Final Resu lt * Colonoscopy (04/14/2015 12:00 AM DIRECTOR OF ORTHOPEDICS) 04/14/2015 04/14/2015 Narrative [facility] TO EPIC CONVERSION - 04/14/2015 12:00 AM DIRECTOR OF ORTHOPEDICS Documented hx of procedure Procedure Note , Rolly Micheal MD - 12/28/2017 Documented hx of procedure us Generic Conversion Md [facility] GI PROCEDURE ORDERABLES Final Result [facility] TO EPIC CONVERSION from Last 3 Months or Most Recently Relevant to Health Maintenance Insurance [employer] OPEN ACCESS [facility] Advance Directives * Full Code (Latest Code Status on File) Date Activated Date Inactivated Comments 07/02/2023 3:07 PM * Full Code Date Activated Date Inactivated Comments 06/30/2023 11:12 AM 07/01/2023 5:01 PM Care Teams Demand Manager Relationship Specialty [place] [address] [place] [address] PCP - General FAMILY PRACTICE 04/02/22 Antoinette Ruiz, PASachinC [address] [facility] [place] [address] PHYSICIAN BATH MIXER 06/17/23
--- OUTSIDE RECORDS SUMMARY | 2024-06-08 17:12 | XMS_ITS | Encounter Summary ---
Author Organization [facility] Address [address] [place] [address] Care Team Providers Care Freight Engineer Name Role Phone Dorota Campbell MD Primary Care Provider [phone] Antoinette Ruiz PA-C Unavailable [phone] Encounter Details Date Type Department Care Team (Late st Contact Info) Description 10/09/2023 [employer] Message Enc [facility] Medical Group Orthopedic & Sports Medicine - [place] [address] [place], [facility] Provider appointment Social History Tobacco Use Types Packs/Day Years Used Date Smoking Tobacco: Former Cigarettes Passive Smoke Exposure: Never Smokeless Tobacco: Never Comments:Smoked 1ppd x 22yrs Quit 1998 Alcohol Use Standard Drinks/Week Comments Yes 0 (1 standard drink = 0.6 oz pur e alcohol) 2 times a month maybe B1300 Health Literacy Answer Date Recor ded How often do you need to hav e someone help you when you read instructions, pamphlets, or other written material from your doctor or pharmacy? Never 06/30/2023 [facility] Utilities Answer Date Recorded In the past 12 months has [facility] [employer], gas, oil, or water [employer] threatened to shut off services in your [...] Recorded Patient Health Questionnaire-2 Score 0 07/15/2023 [facility] of Occupat ional [facility] - Occupational Stress Questionnaire Answer Date Recorded [...] any time in the past 12 m [facility], were you homeless or living in a group home (including now)? No 06/30/2023 Comments No Sex and Gender Information Value Date Recorded Sex Assigned at Female 04/01/2024 4:04 PM CORN BREEDER Legal Sex Female 5:30 PM CDT Gender Identity Female 04/01/2024 4:04 PM CORN BREEDER Sexual Orientation Not on file documented as [...] 11:52 AM MANUELITOT Fay Morales RN Active documented as of this encounter [...] Description 06/22/2024 3:40 PM CDT Office Visit [facility] - [place] [address] [place] [address] Gaudencio Correa MD [address] [facility] [address] [place] [address] 11/11/2024 4:20 PM CDT Office Visit [facility] [address] [place] [address] [place] [address] [facility]. [address] [place] [address] documented as of this encounter Visit Diagnoses Not on filedocumented in this encounter Additional Health Concerns Infection Onset Date Last Indicated Resolved Time COVID-19 Rule Out 02/23/2024 02/23/2024 02/23/2024 4:27 PM CORN BREEDER documented as of this encounter Care Teams Freight Engineer Relationship Specialty Start Date End Date Dorota Campbell [place] [address] [place] [address]. [address] [place] [address] PCP - General FAMILY PRACTICE 04/02/22 Antoinette Ruiz PA-C [address] [place] [address] PHYSICIAN CERTIFIED WELLNESS PROGRAM COORDINATOR 06/17/23 documented as of this encounter
--- OUTSIDE RECORDS SUMMARY | 2024-06-08 17:12 | XMS_ITS | Encounter Summary ---
Author Organization [facility] Address [facility] [place] [address] Care Team Providers Care Podiatric Technician Name Role Phone Dorota Campbell MD Primary Care Provider [phone] Antoinette Ruiz PA-C Unavailable [phone] Encounter Details Date Type Department Care Team (Late st Contact Info) Description 05/07/2024 [employer] Message Enc [facility] Medical Group Family & Internal Medicine [address] [address] [place] [facility] Provider appointment Social History Tobacco Use Types [...] your doctor or pharmacy? Never 06/30/2023 [facility] Utilities Answer Date Recorded In the past 12 months has e electric, gas, oil, or water [employer] threatened to shut off services in your [...] Recorded Patient Health Questionnaire-2 Score 0 05/11/2024 [employer] of Occupat ional Health - Occupational Stress Questionnaire Answer Date Recorded [...] any time in the past 12 m [facility], were you homeless or living in a residential (including now)? No 06/30/2023 Comments No Sex and Gender Information Value Date Recorded Sex Assigned at Female 04/01/2024 4:04 PM PLUMBING SERVICE TECHNICIAN Legal Sex Female 5:30 PM CDT Gender Identity Female 04/01/2024 4:04 PM PLUMBING SERVICE TECHNICIAN Sexual Orientation Not on file documented as [...] Description 06/22/2024 3:40 PM CDT Office Visit [facility] Orthopedic & Sports Medicine - [place] [address] [place] [address] Gaudencio Correa MD [address] [facility] [address] [place] [address] 11/11/2024 4:20 PM CDT Office Visit [facility] Family & Internal Medicine [facility] [address] [place] [address] [place] [address] [facility] [place] [address] documented as of this encounter Visit Diagnoses Not on filedocumented in this encounter Care Teams Podiatric Technician Relationship Specialty [place] [address] [facility] [place] [address] PCP - General FAMILY PRACTICE 04/02/22 Antoinette Ruiz PASachinC [address] [place] [address] PHYSICIAN INTERNAL COMMUNICATIONS WRITER 06/17/23 documented as of this encounter
--- OUTSIDE RECORDS SUMMARY | 2024-06-08 17:12 | XMS_ITS | Encounter Summary ---
Author Organization [facility] Address [address] [place] [address] Care Team Providers Care Procurement Director Name Role Phone Amira San MD Primary Care Provider + Encounter Details Date Type Department Care Team (Late st Contact Info) Description 02/21/2020 Lab Requisition [facility] DermPath Lab [address] [facility], [place] [address] Toño John MD [address] [place] [address] Social History Tobacco Use Types Packs/Day Years Used Date Smoking Tobacco: Never Assessed Comments Unknown Sex and Gender Information Value Date Recorded Sex Assigned at Not on file Legal Sex Female 6:01 PM UNIVERSITY EXTENSION SPECIALIST Gender Identity Not on file Sexual Orientation Not on file documented as of this encounter Plan of Treatment Not on file documented as of this encounter Procedures Procedure Name Priority Date/Time Associated Diagnosis Comments DERMATOPATHOLOGY Routine 02/16/2020 3:33 AM UNIVERSITY EXTENSION SPECIALIST documented in this encounter Results * DERMATOPATHOLOGY (02/16/2020 3:33 AM UNIVERSITY EXTENSION SPECIALIST) Case Report Dermatopathology Report Case: [id number] Authorizing Provider: Toño John MD Collected: 02/16/2020 03:33 AM Ordering Location: [facility] DermPath Lab Received: 02/21/2020 07:03 AM Pathologist: Ankit Hernandez MD Specimen: Skin, right cheek 0 4:50 PM [facility] DERMATOPATHOLOGY LABORATORY Final Diagnosis Specimen A. SKIN, right cheek: PIGMENTED SEBORRHEIC KERATOSIS (L82.1) 0 4:50 PM [facility] DERMATOPATHOLOGY LABORATORY Clinical History R/O ISK, SK, other melanocytic lesion. 0 4:50 PM [facility] DERMATOPATHOLOGY LABORATORY Gross Description Specimen A: Received is one formalin filled container labeled with the patient's name and designated right cheek. The specimen consists of a shave biopsy measuring 4x7u3mh. Jar 0. 0 4:50 PM [facility] DERMATOPATHOLOGY LABORATORY Microscopic Description Specimen A. SKIN, right cheek: Sections show an acanthotic lesion composed of relatively uniform keratinocytes.There is hyperkeratosis and pseudo horn cysts. Pigment is present in the keratinocytes composing this tumor. 0 4:50 PM [facility] DERMATOPATHOLOGY LABORATORY Disclaimer An external and internal positive and negative controls are appropriate for the histochemical, immunohistochemical and immunofluorescence stain(s) in this case (if any), except where stated explicitly. The performance characteristics of the stain(s) cited in this report were developed and its performance characteristic determined by the Dermatopathology Laboratory at [facility], directed by Dr. Michelle Hernandez. These tests need not be, and therefore are not, approved by the [place] Food and Drug Administration. The tests are used for clinical purposes. Billing Codes Specimen Charges Stain Charges 91002 1 0 4:50 PM [facility] DERMATOPATHOLOGY LABORATORY Embedded Images 0 4:50 PM [facility] DERMATOPATHOLOGY LABORATORY Pathology/Cytolo gy TISSUE SPECIMEN FROM SKIN / Unknown 02/16/2020 3:33 AM UNIVERSITY EXTENSION SPECIALIST 02/21/2020 7:03 AM UNIVERSITY EXTENSION SPECIALIST Toño John MD LAB - PATHOLOGY/CYTOLOGY ORD ERABLES Final Result DERMATOPATHOLOGY LABORATORY [facility] - Department of Dermatology [address], [address] [phone] documented in this encounter Visit Diagnoses Not on filedocumented in this encounter Care Teams Procurement Director Relationship Specialty Start Date End Date Amira San MD [address] [facility] [address] [place] [address] PCP - General 07/16/21 documented as of this encounter
--- OUTSIDE RECORDS SUMMARY | 2024-06-08 17:12 | XMS_ITS | Continuity of Care Document ---
Author Organization [facility] Address [address] [place] [address] Phone Care Team Providers Care Fourth Grade Teacher Name Role Phone Rose OD, Mickey Unavailable Unavailable Procedures Procedure Date Contact Lens Hydrophilic, Spherical Medical Tax Contact Lens Check Contact Lens Check Contact Lens Check BF Polycarb Sphcyl [place] To +/-4d .12-2d Anti-reflective Coating Miscellaneous Vision [...] Diagnoses Date Provider Providers Copied on Encounter Prime [facility]placed By [facility], [address], [place], [place], [id number], tel:[phone] [facility] No Information Sep-3 0-201 0 Rose OD Mickey. [address] , [address], [place], [address], [place]. tel:[phone] [facility], [address], [place], [place], [id number], [place] tel:[phone] [facility] No Information Sep-2 3-201 0 Rose OD Mickey. [address] [facility] [facility] , [address], [place], [address], [place]. tel:[phone] [facility], [address] [place] [address] [address], [place], [place], [id number], [place] tel:[phone] [facility] No Information Sep-1 6-201 0 Rose OD Mickey. [address] [facility] , [address], [place], [address], [place]. tel:[phone] [facility], [address], [place], [place], [id number], [place] tel:[phone] [facility] No Information Sep-0 2-201 0 Rose OD Mickey. [address] [facility] , [address], [place], [address], [place]. tel:[phone] [facility], [address], [place], [place], [address], [place] tel:[phone] [facility] No Information Sep-0 1-201 0 [employer] . [address] [facility], [address], [place], [place], [address], [place]. tel:[phone] Referring Provider: Mickey Rose OD A, [address], [place], [address]. tel:[phone] sulting Provider: Susu Robbins, [address] [place], [address]. tel:[phone] [facility], [address] [place] [address] [address], [place], [place], [id number], [place] tel:[phone] [facility] No Information 8-201 0 Rose OD Mickey. [address] , [address], [place], [facility], [place]. tel:[phone] [facility], [address] [place] [address] [address], [place], [place], [address], [place] tel:[phone] [facility] No Information 9-201 0 Rose OD Mickey. [address] , [address], [place], [facility], [place]. tel:[phone] [facility], [address] [place] [address] [address], [place], [place], [id number], tel:[phone] [facility] No Information 5-201 0 Rose OD Mickey. [address] , [address], [place], [facility], [place]. tel:[phone] Office/outpat ient Visit, [facility], [address] [place] [address] [address], [place], [place], [address], [place] tel:[phone] [facility] No Information 8-201 0 Rose OD Mickey. [address] [facility] , [address], [place], [facility], [place]. tel:[phone] [facility], [address] [place] [address] [address], [place], [place], [id number], [place] tel:[phone] [facility] No Information b-0 4-201 0 Rose OD Mickey. [address] , [address], [place], [facility], [place]. tel:[phone] Family History Family Member Type Diagnosis Age At Onset No Information Payers Payer name Insurance type Covered democrat ID Margaux short(s) [employer] Vision Plan [id number] Social History Type Description Quantity Date Captured [...]
--- OUTSIDE RECORDS SUMMARY | 2024-06-08 17:12 | XMS_ITS | Clinical Summary ---
Author Organization [facility] Address [address] [place] [address] Care Team Providers Care History Faculty Member Name Role Phone Amira San MD Primary Care Provider + Source Comments [facility],non-owned Affiliates and Associated Physician Practices is amultiple site organization consisting of ambulatory clinics and hospital sitesin [place], [place], [place] and [place]. This disclosure is being madepursuant to the Care Everywhere program and may not contain all information available regarding this patient. Last updated 17.[facility] Social History Tobacco Use Types Packs/Day Years Used Date Smoking Tobacco: Never Assessed Comments Unknown Sex and Gender Information Value Date Recorded Sex Assigned at Not on file Legal Sex Female 6:01 PM ORNAMENTAL METAL WORKER APPRENTICE Gender Identity Not on file Sexual Orientation Not on file Plan of Treatment Health Maintenance Due Date Last Done Comments COLOGUARD (AGES 45-75) - COL ON CA SCREENING 1960 COLON MONITORING 1960 COLONOSCOPY - COLON CA SCREENING 1960 CT COLONOGRAPHY - COLON CA SCREENING 1960 Colorectal Cancer Screening 1960 FIT - COLON CA SCREENING 1960 FLEX SIG - COLON CA SCREENING 1960 LIPID TESTING 1960 MAMMOGRAM 1960 HIV SCREENING 12/01/1975 HEPATITIS C SCREENING 11/26/1978 DTAP/TDAP/TD VACCINES (1 - Tdap) 12/01/1979 PNEUMOCOCCAL VACCINE 50+ (1 of 1 - PCV) 2010 ZOSTER VACCINE (1 of 2) 2010 COVID-19 VACCINE (1 - 2023-2 5 season) 2023 DEPRESSION SCREENING 02/25/2024 INFLUENZA VACCINE (Season Ended) 2024 Respiratory Syncytial Virus (RSV) Vaccine Pt: or over 60 yrs (1 - 1-dose 75+ series) 12/01/2035 HEPATITIS B VACCINE Aged Out No longe r eligible based on patient's age to complete this topic HIB VACCINE Aged Out No longer eligi ble based on patient's age to complete this topic HPV VACCINE Aged Out No longer eligi ble based on patient's age to complete this topic MENINGOCOCCAL (Group B) VACC INE SHARED DECISION-MAKING Aged Out No longer eligibl e based on patient's age to complete this topic MENINGOCOCCAL GROUPS A/C/Y/W VACCINE Aged Out No longer eligible b ased on patient's age to complete this topic Insurance [employer] Care Teams History Faculty Member Relationship Specialty Start Date End Date Amira San MD [address] [place] [address] PCP - General 07/16/21
--- OUTSIDE RECORDS SUMMARY | 2024-06-08 17:12 | XMS_ITS | Encounter Summary ---
Author Organization [facility] Address [address] [place] [address] Care Team Providers Care Decorator Inspector Name Role Phone Dorota Campbell MD Primary Care Provider [phone] Antoinette Ruiz PA-C Unavailable [phone] Encounter Details Date Type Department Care Team (Late st Contact Info) Description 10/24/2023 [employer] Message Enc [facility] Medical Group Orthopedic & Sports Medicine - [place] [address] [place], [facility] Provider questions Social History Tobacco Use Types Packs/Day Years [...] from your doctor or pharmacy? Never 06/30/2023 [facility] Utilities Answer Date Recorded In the past 12 months has [facility] [employer], gas, oil, or water [employer] threatened to shut off services in your [...] Recorded Patient Health Questionnaire-2 Score 0 07/15/2023 [facility] of Occupat ional [facility] - Occupational Stress Questionnaire Answer Date [...] any time in the past 12 m [facility], were you homeless or living in a residential (including now)? No 06/30/2023 Comments No Sex and Gender Information Value Date Recorded Sex Assigned at Female 04/01/2024 4:04 PM PRACTICE BUSINESS ASST Legal Sex Female 5:30 PM CDT Gender Identity Female 04/01/2024 4:04 PM PRACTICE BUSINESS ASST Sexual Orientation Not on file documented as [...] Medical Group Orthopedic & Sports Medicine - [place] [address] [place] [address] Gaudencio Correa MD [address] [facility] [address] [place] [address] 11/11/2024 4:20 PM CDT Office Visit [facility] Family & Internal Medicine [facility] [address] [place] [address] [place] [address] [facility]. [address] [place] [address] documented as of this encounter Visit Diagnoses Not on filedocumented in this encounter Additional Health Concerns Infection Onset Date Last Indicated Resolved Time COVID-19 Rule Out 02/23/2024 02/23/2024 02/23/2024 4:27 PM PRACTICE BUSINESS ASST documented as of this encounter Care Teams Decorator Inspector Relationship Specialty Start Date [place] [address] [place] [address]. [address] [place] [address] PCP - General FAMILY PRACTICE 04/02/22 Antoinette Ruiz PA-C [address] [place] [address] PHYSICIAN TORPEDO SPECIALIST 06/17/23 documented as of this encounter
--- OUTSIDE RECORDS SUMMARY | 2024-06-08 17:12 | XMS_ITS | Encounter Summary ---
Author Organization [facility] Health Address [address] [place] [address] Care Team Providers Care Tray Line Worker Name Role Phone Amira San MD Primary Care Provider + Encounter Details Date Type Department Care Team (Late st Contact Info) Description 10/09/2017 Lab Requisition [facility] Care DermPath Lab [address] [facility] [facility] [address], [place] [address] Toño John MD [address] [place] [address] Social History Tobacco Use Types Packs/Day Years Used Date Smoking Tobacco: Never Assessed Comments Unknown Sex and Gender Information Value Date Recorded Sex Assigned at Not on file Legal Sex Female [address] EQUIPMENT OPERATOR Gender Identity Not on file Sexual Orientation Not on file documented as of this encounter Plan of Treatment Not on file documented as of this encounter Procedures Procedure Name Priority Date/Time Associated Diagnosis Comments DERMATOPATHOLOGY Routine 10/08/2017 12:0 0 AM CDT documented in this encounter Results * DERMATOPATHOLOGY (10/08/2017 12:00 AM CDT) Case Report Dermatopathology Report Case: [id number] Authorizing Provider: Toño John MD Collected: 10/08/2017 12:00 AM Pathologist: Ankit Hernandez MD Received: 10/09/2017 12:48 PM Specimen: Skin, left extensor proximal forearm 4:45 PM CDT DERMATOPATHOLOGY LABORATORY Final Diagnosis Specimen A. 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 4:45 PM CDT DERMATOPATHOLOGY LABORATORY Gross Description Specimen A: Received is one formalin filled container labeled with the patient's name and designated left extensor proximal forearm. The specimen consists of a punch biopsy measuring [id number], bisected. Jar 0. 4:45 PM CDT DERMATOPATHOLOGY LABORATORY Microscopic Description Specimen A. SKIN, left extensor proximal forearm: Sections show acanthosis, hypergranulosis, and hyperkeratosis. The papillary dermis is fibrotic. Within the dermis there are also dilated thin-walled vessels lined by a single layer of endothelium. 4:45 PM CDT DERMATOPATHOLOGY LABORATORY Disclaimer An external and internal positive and negative controls are appropriate for the histochemical, immunohistochemical and immunofluorescence stain(s) in this case (if any), except where stated explicitly. The performance characteristics of the stain(s) cited in this report were developed and its performance characteristic determined by the Dermatopathology Laboratory at [facility]. These tests need not be, and therefore are not, approved by the [place] Food and Drug Administration. The tests are used for clinical purposes. Billing Codes Specimen Charges Stain Charges 10276 1 4:45 PM CDT DERMATOPATHOLOGY LABORATORY Embedded Images 4:45 PM CDT DERMATOPATHOLOGY LABORATORY Pathology/Cytolog y TISSUE SPECIMEN FROM SKIN / Unknown 10/08/2017 10/09/2017 12:48 PM CDT us Toño John MD LAB - PATHOLOGY/CYTOLOGY ORD ERABLES Final Result DERMATOPATHOLOGY LABORATORY [facility] - Department of Dermatology [address] [place] [address], 5th Floor Lab [address] [phone] documented in this encounter Visit Diagnoses Not on filedocumented in this encounter Care Teams Tray Line Worker Relationship Specialty Start Date End Date Amira San MD [address] [facility] [address] [place] [id number] PCP - General 07/16/21 documented as of this encounter
[2024-06-08 17:19] VITALS: BP 112/64; PULSE 68; RESP 18; TEMP 36.1; O2SAT 100
--- NOTE | 2024-06-08 18:41 | ED.URI ---
HPI - URI/Sore Throat General Chief Complaint: Upper Respiratory Infection Stated Complaint: sinus infection Time Seen by Provider: 06/08/24 17:30 Source: patient and RN notes reviewed Mode of arrival: ambulatory Limitations: no limitations History of Present Illness HPI Narrative: 63-year-old female presents Express Care complaining of upper respiratory symptoms for 2 weeks. Patient stated she started with a sore throat, congestion, sinus pressure. Patient states she was taking Tylenol, Mucinex, and Flonase for symptom relief. Patient stated her symptoms started to get better and then suddenly got worse within the last few days. Patient reports having purulent nasal discharge in coughing up yellow phlegm. Patient states her sinus pressure is worse with she leans forward. Patient denies any chest pain or shortness of breath, fevers, chills, body aches. Related Data Home Medications ?Medication ?Instructions ?Recorded ?Confirmed ?Last Taken ?Type celecoxib 200 mg capsule 200 mg PO DAILY 02/04/21 11/22/21 Unknown History cyclosporine 0.05 % eye drops in a 2 drp EACH EYE BID 02/04/21 11/22/21 Unknown History dropperette (Restasis) latanoprost 0.005 % eye drops 1 drp EACH EYE HS 02/04/21 11/22/21 Unknown History secukinumab 150 mg/mL subcutaneous mg subcut 06/08/24 Unknown History pen injector (Cosentyx Pen) Allergies Allergy/AdvReac Type Severity Reaction Status Date / Time Sulfa (Sulfonamide Allergy Severe pruritic Verified 11/22/21 16:33 Antibiotics) RASH sulfamethoxazole Allergy Severe RASH Verified 11/22/21 16:33 trimethoprim Allergy Severe RASH Verified 11/22/21 16:33 Penicillins Allergy Unknown Rash Verified 11/22/21 16:33 leflunomide Allergy Rash Verified 11/22/21 16:33 mold Allergy Rash Verified 11/22/21 16:33 Review of Systems Review of Systems: CONSTITUTIONAL: Denies fever, chills, or sweats. EYES: Denies visual changes, redness, or discharge. ENT: Denies rhinorrhea,, or otalgia. Positive for sore throat, congestion, sinus pressure. CARDIOVASCULAR: Denies chest pain, palpitations, or edema. RESPIRATORY: Positive for cough. Negative for dyspnea. GASTROINTESTINAL: Denies abdominal pain, nausea, vomiting, or diarrhea. GENITOURINARY: Denies dysuria or hematuria. SKIN: Denies rash or itching. MUSCULOSKELETAL: Denies back pain, joint pain, or myalgia. NEUROLOGIC: Denies headache, numbness, or weakness. PSYCHIATRIC: Denies anxiety or depression. All other systems reviewed are negative, except as documented in HPI. [facility] Past Medical History Medical History Normal colonoscopy Morbid obesity Psoriatic arthritis Benign hypertension Onycholysis of toenail Glaucoma Psoriasis Onychomycosis due to dermatophyte CRISTOPHER treated with BiPAP Surgical History Surgical History History of endometrial ablation History of esophagogastroduodenoscopy (EGD) H/O hand surgery Family History Family History Mother Family history of thyroid disease Family history of obesity Family history of blood dyscrasia Family history of glaucoma Family history of cataracts Family history of anemia Patient's mother is in good health Family history of kidney disease Father Family history of hearing loss Patient's father is , Onset Age: 72 Sibling Hypertension Patient's sister is in good health Patient's brother is in good health Family history of cardiovascular disease Family history of arthritis Social History Social History Social History: Years smoked: 20 Smoking status: Former smoker Tobacco type: cigarettes Second hand tobacco smoke exposure: No Smoking end date: 02/05/99 Alcohol intake: current Alcohol use details: 2/MONTH Substance use: never Substance use type: does not use Living arrangements: with family Occupation/Education: occupation Gender identity (if verbalized by the patient): Female Sexual Orientation (if Verbalized by the Patient): Straight or Heterosexual Spiritual care concerns: No Comments At the time of my signature, I reviewed and agree with the nursing past medical, surgical, social, and family history. There is no relevant family history pertinent to the patient complaint. Exam Narrative: GENERAL: This is a well-nourished, well-developed adult, in no apparent distress. They are non ill-appearing, nontoxic appearing. HEAD: normocephalic, atraumatic. EYES: Sclera clear/white. Vision is grossly intact. EARS: External ears normal, auditory canals clear and without drainage, TMs normal without perforation. Hearing grossly intact. NOSE: External nose normal with no obvious nasal discharge, nasal turbinates are erythematous bilaterally, no rhinorrhea. Frontal and maxillary sinus tenderness to palpation. THROAT: Mucous membranes moist, posterior pharynx with postnasal drip. Uvula midline NECK: Neck supple, non-tender without lymphadenopathy, masses or thyromegaly. CARDIOVASCULAR: Regular rate and rhythm without murmurs, gallops, or rubs. RESPIRATORY: Clear to auscultation. Breath sounds equal bilaterally. No wheezes, rales, or rhonchi. SKIN: warm, Dry, intact with no suspicious lesions or rash, good texture and turgor. NEURO: awake, alert, and oriented to person, place and time. There were no obvious focal neurologic abnormalities. EXTREMITIES: No joint tenderness, effusion, or edema noted. Course Course Emergency Course: Patient is aware of diagnosis, understands and agrees to treatment plan. Anticipatory guidance given. Patient agrees to follow-up as directed and is aware of reasons to seek care at the emergency department. Portions of this record may have been created with voice recognition software Level of Care: Express Care Visit Vital Signs Vital signs: Vital Signs Temperature 96.9 F L 06/08/24 17:19 Pulse Rate 68 06/08/24 17:19 Respiratory Rate 18 06/08/24 17:19 Blood Pressure 112/64 06/08/24 17:19 Pulse Oximetry 100 06/08/24 17:19 Oxygen Delivery Room Air 06/08/24 17:19 Temperature 96.9 F L 06/08/24 17:19 Pulse Rate 68 06/08/24 17:19 Respiratory Rate 18 06/08/24 17:19 Blood Pressure 112/64 06/08/24 17:19 Pulse Oximetry 100 06/08/24 17:19 Oxygen Delivery Room Air 06/08/24 17:19 Reviewed MDM - URI/Sore Throat MDM Narrative Medical decision making narrative: Symptoms likely consistent with a bacterial sinusitis. Her symptoms have not resolved after 14 days and have suddenly got worse. Will treat empirically with doxycycline. She is allergic to penicillins. Discussed physical exam findings. Advised supportive measures and signs/symptoms to go to the ER. Pt is appropriate for outpt treatment and f/u. Differential Diagnosis Differential diagnosis: Likely upper respiratory infection, sinusitis and pharyngitis Critical Care Time Critical Care Time Critical Care Time: No Discharge Plan Discharge Clinical Impression: Sinusitis Qualifiers: Sinusitis location: unspecified location Chronicity: acute Recurrence: not specified as recurrent Qualified Code(s): J01.90 - Acute sinusitis, unspecified Patient Disposition: Home Condition: Stable Instructions: Antibiotic Form, Sinusitis (ED) Additional Instructions: Take antibiotics as directed. Please finish the full course even if you start to feel better. Please take them with food. Please wear sunscreen if you are going to be out in the sun while taking doxycycline. Follow-up with primary care provider in 1 week. You may need to follow-up with an ENT if your symptoms persist. Continue to use your Flonase daily. You may also do sinus rinses 3 times a day with distilled water. If your symptoms worsen you have any concerns please go to the ER for further evaluation. Patient Language: Azerbaijani Prescriptions: New doxycycline monohydrate 100 mg capsule 100 mg PO BID 7 Days Qty: 14 0RF No Action celecoxib 200 mg capsule 200 mg PO DAILY latanoprost 0.005 % drops 1 drp EACH EYE HS cyclosporine [Restasis] 0.05 % dropperette 2 drp EACH EYE BID Cosentyx Pen 150 mg/mL pen injector SUBCUT famotidine 20 mg tablet 20 mg PO BID Qty: 60 3RF spironolactone 25 mg tablet See Rx Instructions .ROUTE .COMPLEX Qty: 90 0RF Dose Instruction: Take 1 tablet by mouth once daily Rx Instructions: Take 1 tablet by mouth once daily hydroxyzine HCl 25 mg tablet See Rx Instructions .ROUTE .COMPLEX Qty: 90 0RF Dose Instruction: Take 1 tablet by mouth 4 times daily Rx Instructions: Take 1 tablet by mouth 4 times daily liothyronine 5 mcg tablet See Rx Instructions .ROUTE .COMPLEX Qty: 90 0RF Dose Instruction: Take 1 tablet by mouth once daily Rx Instructions: Take 1 tablet by mouth once daily ergocalciferol (vitamin D2) 1,250 mcg (50,000 unit) capsule See Rx Instructions .ROUTE .COMPLEX Qty: 14 0RF Dose Instruction: Take 1 capsule by mouth once a week Rx Instructions: Take 1 capsule by mouth once a week hydrochlorothiazide 12.5 mg tablet See Rx Instructions .ROUTE .COMPLEX Qty: 90 0RF Dose Instruction: Take 1 tablet by mouth once daily Rx Instructions: Take 1 tablet by mouth once daily levothyroxine 125 mcg tablet See Rx Instructions .ROUTE .COMPLEX Qty: 80 0RF Dose Instruction: TAKE 1 TABLET BY MOUTH ONCE DAILY SKIPPING EACH FRIDAY Rx Instructions: TAKE 1 TABLET BY MOUTH ONCE DAILY SKIPPING EACH FRIDAY losartan 100 mg tablet See Rx Instructions .ROUTE .COMPLEX Qty: 90 0RF Dose Instruction: Take 1 tablet by mouth once daily Rx Instructions: Take 1 tablet by mouth once daily Follow-up/Referrals: Adrian,MD Dorota [Primary Care Provider] - Mickey Sanchez MD [Physician] - Time of Disposition: 17:53
== END 2024-06-08 17:59 | disposition home or self-care (01) ==
PROVIDERS: PCP Family Medicine
DX: J01.90 Acute sinusitis, unspecified (principal); Z87.891 Personal history of nicotine dependence; I10 Essential (primary) hypertension; L40.50 Arthropathic psoriasis, unspecified; E66.01 Morbid (severe) obesity due to excess calories; Z68.38 Body mass index [BMI] 38.0-38.9, adult; H40.9 Unspecified glaucoma; G47.33 Obstructive sleep apnea (adult) (pediatric)
CPT/HCPCS: 99213; G0463

== ENCOUNTER 2024-09-10 15:47 | Outpatient (CLI) | payer OTHER, SELFPAY ==
--- NOTE | ~2024-09-10 | MM_ITS ---
EXAMINATION: MM screening francisco BI w scar HISTORY: Screening TECHNIQUE: Craniocaudal and mediolateral oblique 3-D tomosynthesis images were obtained and synthetic 2-D images were generated. CAD analysis was submitted and interpreted. COMPARISON: Comparison to multiple prior studies sequentially, with oldest reviewed study dated 2018. BREAST PARENCHYMAL COMPOSITION: There are scattered areas of fibroglandular density. FINDINGS: Scattered benign-appearing calcifications are present. There is no evidence of suspicious m ass, calcification, or architectural distortion to suggest malignancy in either breast. There has bee n no suspicious interval change. Biopsy clip in the right breast. IMPRESSION: 1. No mammographic evidence of malignancy. 2. Recommend routine screening mammography in one year. BI-RADS Category 2: Benign finding(s). Reviewed, dictated and finalized at location B.
--- OUTSIDE RECORDS SUMMARY | 2024-09-10 15:50 | XMS_ITS ---
Author Organization Unknown Medications Medication Instructions Effective Dates (start - stop) Status levothyroxine sodium 0.125 M G Oral Tablet - Completed pentoxifylline 400 MG Extend ed Release Oral Tablet - Completed tacrolimus 0.001 MG/MG Topic al Ointment - Completed famotidine 20 MG Oral Tablet [id number] 0:00:00Z - Completed losartan potassium 100 MG Or al Tablet - Completed brimonidine tartrate 2 MG/ML Ophthalmic Solution - Completed famotidine 20 MG Oral Tablet [id number] 0:00:00Z - Completed liothyronine sodium 0.005 MG Oral Tablet - Completed levothyroxine sodium 0.1 MG Oral Tablet - Completed 1 ML secukinumab 150 MG/ML Auto-Injector [Cosentyx] - Completed 1 ML secukinumab 150 MG/ML Auto-Injector [Cosentyx] - Completed levothyroxine sodium 0.125 M G Oral Tablet - Completed famotidine 20 MG Oral Tablet [id number] 0:00:00Z - Completed spironolactone 25 MG Oral Tablet 00:00:00Z - Completed famotidine 20 MG Oral Tablet [id number] 0:00:00Z - Completed pentoxifylline 400 MG Extend ed Release Oral Tablet - Completed spironolactone 25 MG Oral Tablet :00:00Z - Completed tacrolimus 0.001 MG/MG Topic al Ointment - Completed pentoxifylline 400 MG Extend ed Release Oral Tablet - Completed levothyroxine sodium 0.1 MG Oral Tablet - Completed tramadol hydrochloride 50 MG Oral Tablet - Completed 1 ML secukinumab 150 MG/ML Auto-Injector [Cosentyx] - Completed pentoxifylline 400 MG Extend ed Release Oral Tablet - Completed famotidine 20 MG Oral Tablet [id number] 0:00:00Z - Completed 1 ML secukinumab 150 MG/ML Auto-Injector [Cosentyx] - Completed 0.4 ML cyclosporine 0.5 MG/M L Ophthalmic Suspension [Restasis] - Comp leted brimonidine tartrate 2 MG/ML Ophthalmic Solution - Completed 1 ML secukinumab 150 MG/ML Auto-Injector [Cosentyx] - Completed doxycycline hyclate 100 MG O ral Capsule - Completed acetaminophen 325 MG / hydro codone bitartrate 5 MG Oral Tablet - Completed hydrochlorothiazide 12.5 MG Oral Tablet - Completed metronidazole 0.0075 MG/MG T opical Gel - Completed 1 ML secukinumab 150 MG/ML Auto-Injector [Cosentyx] - Completed pentoxifylline 400 MG Extend ed Release Oral Tablet - Completed tramadol hydrochloride 50 MG Oral Tablet - Completed tramadol hydrochloride 50 MG Oral Tablet - Completed losartan potassium 100 MG Or al Tablet - Completed 1 ML secukinumab 150 MG/ML Auto-Injector [Cosentyx] - Completed 1 ML secukinumab 150 MG/ML Auto-Injector [Cosentyx] - Completed pentoxifylline 400 MG Extend ed Release Oral Tablet - Completed levothyroxine sodium 0.125 M G Oral Tablet - Completed hydrochlorothiazide 12.5 MG Oral Tablet - Completed tacrolimus 0.001 MG/MG Topic al Ointment - Completed pentoxifylline 400 MG Extend ed Release Oral Tablet - Completed liothyronine sodium 0.005 MG Oral Tablet - Completed 1 ML secukinumab 150 MG/ML Auto-Injector [Cosentyx] - Completed tramadol hydrochloride 50 MG Oral Tablet - Completed liothyronine sodium 0.005 MG Oral Tablet - Completed nitrofurantoin, macrocrystal s 25 MG / nitrofurantoin, monohydrate 75 MG Oral Capsule - Completed brimonidine tartrate 2 MG/ML Ophthalmic Solution - Completed losartan potassium 100 MG Or al Tablet - Completed spironolactone 25 MG Oral Tablet :00:00Z - Completed hydrochlorothiazide 12.5 MG Oral Tablet - Completed hydrochlorothiazide 12.5 MG Oral Tablet - Completed {6 (azithromycin 250 MG Oral Tablet) } Pack - Completed 1 ML secukinumab 150 MG/ML Auto-Injector [Cosentyx] - Completed liothyronine sodium 0.005 MG Oral Tablet - Completed losartan potassium 100 MG Or al Tablet - Completed {21 (methylprednisolone 4 MG Oral Tablet) } Pack - Completed pentoxifylline 400 MG Extend ed Release Oral Tablet - Completed brimonidine tartrate 2 MG/ML Ophthalmic Solution - Completed levothyroxine sodium 0.1 MG Oral Tablet - Completed levothyroxine sodium 0.125 M G Oral Tablet - Completed brimonidine tartrate 2 MG/ML Ophthalmic Solution - Completed 1 ML secukinumab 150 MG/ML Auto-Injector [Cosentyx] - Completed liothyronine sodium 0.005 MG Oral Tablet - Completed losartan potassium 100 MG Or al Tablet - Completed pentoxifylline 400 MG Extend ed Release Oral Tablet - Completed 1 ML secukinumab 150 MG/ML Auto-Injector [Cosentyx] - Completed acetaminophen 325 MG / hydro codone bitartrate 5 MG Oral Tablet - Completed acetaminophen 325 MG / hydro codone bitartrate 5 MG Oral Tablet - Completed pentoxifylline 400 MG Extend ed Release Oral Tablet - Completed tramadol hydrochloride 50 MG Oral Tablet - Completed liothyronine sodium 0.005 MG Oral Tablet - Completed metronidazole 0.0075 MG/MG T opical Gel - Completed spironolactone 25 MG Oral Tablet :00:00Z - Completed levothyroxine sodium 0.1 MG Oral Tablet - Completed 1 ML secukinumab 150 MG/ML Auto-Injector [Cosentyx] - Completed pentoxifylline 400 MG Extend ed Release Oral Tablet - Completed brimonidine tartrate 2 MG/ML Ophthalmic Solution - Completed brimonidine tartrate 2 MG/ML Ophthalmic Solution - Completed desoximetasone 2.5 MG/ML Top ical Cream - Completed brimonidine tartrate 2 MG/ML Ophthalmic Solution - Completed acetaminophen 325 MG / hydro codone bitartrate 5 MG Oral Tablet - Completed ergocalciferol 1.25 MG Oral Capsule :00:00Z - Completed spironolactone 25 MG Oral Tablet :00:00Z - Completed pentoxifylline 400 MG Extend ed Release Oral Tablet - Completed Patient Care team information Name Category Status Period Participants - - Proposed period not known -
--- OUTSIDE RECORDS SUMMARY | 2024-09-10 15:50 | XMS_ITS | Continuity of Care Document ---
Author Organization [facility] Address [address] [place] [address] Phone Care Team Providers Care Facility Service Manager Name Role Phone Rose OD, Mickey Unavailable Unavailable Procedures Procedure Date Contact Lens Hydrophilic, Spherical Medical Tax Contact Lens Check Contact Lens Check Contact Lens Check BF Polycarb Sphcyl [place] To +/-4d .12-2d Anti-reflective Coating Miscellaneous Vision [...] Diagnoses Date Provider Providers Copied on Encounter [facility], [address], [place], [place], [id number], tel:[phone] [facility] No Information Sep-3 0-201 0 Rose OD Mickey. [address] , [address], [place], [address], [place]. tel:[phone] [facility], [address], [place], [place], [id number], [place] tel:[phone] [facility] No Information Sep-2 3-201 0 Rose OD Mickey. [address] , [address], [place], [address], [place]. tel:[phone] [facility], [address] [place] [address] [address], [place], [place], [address], [place] tel:[phone] [facility] No Information Sep-1 6-201 0 Rose OD Mickey. [address] , [address], [place], [address], [place]. tel:[phone] [facility], [address], [place], [place], [id number], [place] tel:[phone] [facility] No Information Sep-0 2-201 0 Rose OD Mickey. [address] , [address], [place], [address], [place]. tel:[phone] [facility], [address], [place], [place], [id number], [place] tel:[phone] [facility] No Information Sep-0 1-201 0 [facility] . [address], [address], [place], [place], [id number], [place]. tel:[phone] Referring Provider: Mickey Rose OD A, [address], [place], [address]. tel:[phone] sulting Provider: Susu Robbins, [address] [place], [address]. tel:[phone] [facility], [address] [place] [address] [address], [place], [place], [address], [place] tel:[phone] [facility] No Information 8-201 0 Rose OD Mickey. [address], [place], [facility], [place]. tel:[phone] [facility], [address] [place] [address] [address], [place], [place], [address], [place] tel:[phone] [facility] No Information 9-201 0 Rose OD Mickey. [address], [place], [facility], [place]. tel:[phone] [facility], [address] [place] [address] [address], [place], [place], [address], tel:[phone] [facility] No Information 5-201 0 Rose OD Mickey. [address] , [address], [place], [facility], [place]. tel:[phone] Office/outpat ient Visit, [facility], [address] [place] [address] [address], [place], [place], [id number], [place] tel:[phone] [facility] No Information 8-201 0 Rose OD Mickey. [address] , [address], [place], [facility], [place]. tel:[phone] [facility], [address] [place] [address] [address], [place], [place], [id number], [place] tel:[phone] [facility] No Information b-0 4-201 0 Rose OD Mickey. [address] , [address], [place], [facility], [place]. tel:[phone] Family History Family Member Type Diagnosis Age At Onset No Information Payers Payer name Insurance type Covered alliance party ID Margaux short(s) [employer] Plan [id number] Social History Type Description Quantity Date Captured [...]
--- OUTSIDE RECORDS SUMMARY | 2024-09-10 15:51 | XMS_ITS | Encounter Summary ---
Author Organization [facility] Address [address] [place] [address] Care Team Providers Care Band Singer Name Role Phone Amira San MD Primary Care Provider [phone] Dorota Campbell MD Primary Care Provider [phone] Antoinette Ruiz PA-C Unavailable [phone] Encounter Details Date Type Department Care Team (Late st Contact Info) Description 04/14/2017 Abstract [facility] CONVERSION [address] [place] [address] , Rolly Michael MD Social History Tobacco Use Types Packs/Day Years Used Date Smoking Tobacco: Never Assessed Comments Unknown Sex and Gender Information Value Date Recorded Sex Assigned at Female 04/01/2024 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 [place] [address] documented as of this encounter Visit Diagnoses Not on filedocumented in this encounter Additional Health Concerns Infection Onset Date Last Indicated Resolved Time COVID-19 Rule Out 02/23/2024 02/23/2024 02/23/2024 4:27 PM PIPELINES LABORER documented as of this encounter Care Teams Band Singer Relationship Specialty Start Date End Date Amira San MD [address] [facility] [address] [place] [address] PCP - General FAMILY PRACTICE 05/05/20 04/01/22 [place] [address] [facility] [place] [address] PCP - General FAMILY PRACTICE 04/02/22 Antoinette Ruiz, PASachinC [address] [place] [address] PHYSICIAN CASTING FINISHER 06/17/23 documented as of this encounter
--- OUTSIDE RECORDS SUMMARY | 2024-09-10 15:51 | XMS_ITS | Encounter Summary ---
Author Organization [facility] Address [facility] [place] [address] Care Team Providers Care Apprentice Funeral Director Name Role Phone Dorota Campbell MD Primary Care Provider [phone] Antoinette Ruiz PA-C Unavailable [phone] Encounter Details Date Type Department Care Team (Late st Contact Info) Description 05/07/2024 Towi Message Enc [facility] Medical Group Family & Internal Medicine [address] [address] [facility] Provider appointment Social History Tobacco Use [...] from your doctor or pharmacy? Never 06/30/2023 [facility] Utilities Answer Date Recorded In the past 12 months has e electric, gas, oil, or water [employer] threatened to shut off services in your [...] Recorded Patient Health Questionnaire-2 Score 0 05/11/2024 [facility] - Occupational Stress [...] any time in the past 12 [facility], were you homeless or living in a fdc (including now)? 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 [address] [place] [id number] documented as of this encounter Visit Diagnoses Not on filedocumented in this encounter Care Teams Apprentice Funeral Director Relationship Specialty [place] [address] [facility] [place] [address] PCP - General FAMILY PRACTICE 04/02/22 Antoinette Ruiz PA-C [address] [place] [address] PHYSICIAN CARE PARTNER 06/17/23 documented as of this encounter
--- OUTSIDE RECORDS SUMMARY | 2024-09-10 15:51 | XMS_ITS | Data Portability ---
Author Organization 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 Imaging MAMMO, screening, bilateral 2022 023 [facility], [address], [address], [place], [address], 3 05:01:16 US, transvagina l 2021 022 [email or web address] [place], [address], [address], [place], [address], 18:10:40 Medication Orders None recorded. Patient TargetsNo targets recorded. Patient InstructionsNo instructions recorded. Reason for Referral None Reported. Results Created Date Observation Date Name Description Value Unit Range Abnormal Flag Note LastModifiedBy Organization Detail LastModifiedTime 08/03/19 22 08/02/2021 US, trans vagin al No observ ation record ed. [email or web address] [address], [place], [address], 08/02/2021 18:06:47 08/03/19 22 08/02/2021 US, trans vagin al No observ ation record ed. [email or web address] [address], [place], [address], 08/02/2021 19:09:47 09/12/19 22 DEXA, axial skele ton + verte bral fract ure asses sment No observ ation record ed. [facility] [address], [place], [address], 09/16/2021 11:37:38 Result Notes None recorded. Problems Name Problem SNOMED Code Status Onset Date Resolution Date Notes Provider Name and Address Organization Details Recorded Time Speciali zed medical examinat ion Completed 201012/20/2011 Gynecolo gical Examinat ion;John rded Elsewher e: No Locat ion: [facility] S ource: EHR Intelligence Consultant nathan: N Practi ce ID: 0001 Perez lable Time: 11:30:00 AM Milena [facility] 2 16:23:55 Screenin g for malignan t neoplasm of cervix Completed 201012/20/2011 Screenin g for malignan t neoplasm s of the cervix;R ecorded Elsewher e: No Locat ion: [facility] S ource: EHR Intelligence Consultant nathan: N Practi ce ID: 0001 Perez lable Time: 11:30:00 AM Milena [facility] 2 16:23:47 Screenin g for malignan t neoplasm of rectum Completed 201012/20/2011 Screenin g for malignan t neoplasm s of the rectum;R ecorded Elsewher e: No Locat ion: [facility] S ource: EHR Intelligence Consultant nathan: N Practi ce ID: 0001 Perez lable Time: 11:30:00 AM Milena lyons [facility] 2 16:23:49 Urinary incontin ence [id number] Completed 201104/26/2021 Urinary incontin ence, unspecif ied;John rded Elsewher e: No Locat ion: [facility] S ource: EHR Intelligence Consultant nathan: N Practi ce ID: 0001 Perez lable Time: 02:45:00 PM Milena Lang [facility] 2 16:23:57 Urinary tract infectio us disease [id number] Completed 201112/20/2011 Urinary Tract Infectio n;Record ed Elsewher e: No Locat ion: [facility] S ource: EHR Intelligence Consultant nathan: N Practi ce ID: 0001 Perez lable Time: 02:45:00 PM Not Available [facility] 0 21:54:39 Leukopen ia [id number] Completed 201104/26/2021 LEUKOCYT OPENIA NOS;Prac ady ID: 0001 Milena Lang [facility] 2 16:23:41 Proteinu kimmie [id number] Completed 201104/26/2021 Proteinu kimmie;Prac ady ID: 0001 Milena Lang [facility] 2 16:23:45 Leukocyt osis [id number] Completed 201104/26/2021 LEUKOCYT OSIS NOS;John rded Elsewher e: No Locat ion: [facility] S ource: EHR Intelligence Consultant nathan: N Practi ce ID: 0001 Perez lable Time: 03:30:00 PM Milena lyons [facility] 2 16:23:39 Screenin g for malignan t neoplasm of cervix Completed 201104/26/2021 Pap Smear;Pr actice ID: 0001 Milena Lang [facility] 2 16:23:47 Speciali zed medical examinat ion Completed 201304/26/2021 Gynecolo gical Examinat ion;John rded Elsewher e: No Locat ion: [facility] S ource: EHR Intelligence Consultant nathan: N Practi ce ID: 0001 Perez lable Time: 03:45:00 PM Milena Lang [facility] 2 16:23:55 Adult health examinat ion Completed 201304/26/2021 ROUTINE MEDICAL EXAM;Rec orded Elsewher e: No Locat ion: [facility] S ource: EHR Intelligence Consultant nathan: N Practi ce ID: 0001 Perez lable Time: 03:45:00 PM Milena Lang [facility] 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 2 16:23:53 Blood leukocyt e number above referenc e range [id number] Completed 201604/26/2021 Elevated white blood cell count, unspecif ied;Prac ady ID: 0001 Milena Lang [facility] 2 16:23:37 Screenin g for malignan t neoplasm of rectum Completed 201604/26/2021 Encounte r for screenin g for malignan t neoplasm of rectum;P ractice ID: 0001 Milena Lang [facility] 2 16:23:[address] Concept Completed 201704/26/2021 Encntr for general adult medical exam w/o abnormal findings ;Practic e ID: 0001 Milena Lang [facility] 2 16:23:51 Menopaus e present [id number] Completed 201704/26/2021 Symptoms such as flushing , sleeples sness, headache , lack of concentr ation, associat ed with natural (age-rel ated) menopaus e;Record ed Elsewher e: No [facility] EHR Intelligence Consultant nathan: N Zachti ce ID: 0001 Perez lable Time: 01:30:00 PM Milena lyons [facility] 2 16:23:43 Finding of body mass index 557327682 Completed 201804/26/2021 Body mass index (BMI) 40.0-44. 9, adult;Re corded Elsewher e: No Locat ion: [facility] S ource: EHR Intelligence Consultant nathan: N Practi ce ID: 0001 Perez lable Time: 01:00:00 PM Milena lyons [facility] 2 16:23:36 Problem Notes None recorded. Procedures Surgical History Date Name Laterality Status Provider Name and Address Organization Details Recorded Time 07/12/19 22 DILATION AND CURETTAGE WITH HYSTEROSCOPY (SURG) completed Lisbeth Hatch [facility] 07/12/2021 11:38:45 04/28/19 22 Date of Last Pap Smear completed Ginna De Jesus [facility] 05/03/2022 11:25:39 04/02/19 20 Date of Last Mammogram completed Milena Lang [facility] 04/27/2021 09:36:07 02/24/19 13 release of trigger thumb completed Milena Lang [facility] 04/26/2021 17:15:59 02/03/20 12 Most Recent Bone Density completed Milenaermelinda Lang [facility] 04/27/2021 09:36:43 02/24/19 06 Breast Biopsy completed Milena Lang [facility] 04/26/2021 17:14:50 02/24/19 06 Hysteroscopy completed [facility] 04/26/2021 17:15:19 02/24/18 99 procedure on urinary bladder completed [facility] 04/26/2021 17:14:36 02/24/18 88 Tubal Ligation completed [facility] 04/26/2021 17:14:21 Tubal Ligation completed [facility] 04/27/2021 10:02:10 Colonoscopy completed [facility] 04/27/2021 10:02:10 Breast Biopsy completed [facility] 04/27/2021 10:02:10 LEEP completed [facility] 04/27/2021 10:02:10 Hysteroscopy completed Julita Clinton [facility] 05/14/2021 17:01:51 Imaging Results None recorded. Procedure Notes None recorded. Medical Equipment None Reported. Allergies Allergen ID Allergen Name Allergen Category Reaction Reaction Severity Criticality Documentation Date Start Date Code Code System Note Provider Name and Address Organization Details Recorded Time 33330 egg extract food,medi cation Not available Not available Not available 02/11/2020 46831 15 RxNorm React ion: sneez e, blow nose, water y itchy ; Comme nt: Locat [facility]: [facility]; Not Available [employer] 0 14:17:48 78411 chicken derived food Not available Not available Not available 02/11/2020 92990 UNK Comme nt: Locat ion: [facility]; Not Available [employer] 0 14:17:48 17429 Product containin g penicilli n (product) medicatio n Not available Not available Not available 02/11/2020 18299 8001 SNOMED React ion: Hives / Skin Rash; Comme nt: [facility]at [facility]; Not Available [employer] 0 14:17:48 Medications Name Sig Start Date [...] Elsewher e: Yes Loca tion: [facility] odify By: alex loaiza DateTime : 01/25/20 14 02:34:16 PM Not Available Not Available Not Available Colace 100 mg capsule take 1 capsule by oral route every day at bedtime as needed 04/27 completed Prescrib ed Elsewher e: Yes Loca tion: [facility] odify By: alex loaiza DateTime : [...] Elsewher e: Yes Loca tion: [facility] odify By: luba gleason DateTime : 01/25/20 14 02:34:16 PM Not Available Not Available Not Available meloxicam 15 mg tablet take 1 tablet (15MG) by oral route every day 05/03 completed Prescrib ed Elsewher e: No Locat ion: [facility] odify By: luis enrique lanunter DateTime : 12/14/19 11 11:30:00 AM Not [...] ed Elsewher e: Yes Loca tion: [facility] odify By: nella burciaga DateTime : 01/25/20 14 02:34:16 PM Not Available Not Available Not Available Ultracet 37.5 mg-325 mg tablet take 2 tablet by oral route every 4 - 6 hours as needed, for up to 5 days; do not exceed 8 tablets in 24hrs 01/13 completed Prescrib ed Elsewher e: Yes Loca tion: [facility] odify By: alex loaiza DateTime : 12/18/19 12 03:30:00 PM Not Available Not Available Not Available omeprazol e 40 mg capsule,d elayed release take 1 capsule by oral route every day before a meal 04/27 completed Prescrib ed Elsewher e: Yes Loca tion: [facility] odify By: alex loaiza DateTime : 01/25/20 [...] ed Elsewher e: Yes Loca tion: [facility] odify By: alex loaiza DateTime : 01/25/20 14 02:34:16 PM Not Available Not Available Not Available famotidin e 20 mg tablet TAKE 1 TABLET BY MOUTH TWICE DAILY active Not Available Not Available No t Available Claritin- D 24 Hour 10 mg-240 mg tablet,ex tended release take 1 tablet by oral route every day 01/31 completed Prescrib ed Elsewher e: Yes Loca tion: [facility] odify By: luba gleason DateTime : [...] Prescrib ed Elsewher e: Yes [facility] By: alex loaiza DateTime : 01/25/20 14 02:34:16 PM Not Available Not Available Not Available hydrochlo rothiazid e 12.5 mg capsule 05/03 completed Not Available Not Available Not Available black cohosh root extract 40 mg capsule 01/13 completed Prescrib ed Elsewher e: Yes Loca [facility] odify By: alxe loaiza DateTime : 12/18/19 12 03:30:00 PM Not Available Not Available Not Available omeprazol e 20 mg capsule,d elayed release take 1 capsule (20MG) by oral route every day before a meal 04/27 completed Not Available Not Available Not Available Tylenol 325 mg tablet take 1 tablet by oral route every 4 hours as needed active Prescrib ed Elsewher e: Yes Loca [facility]ion: [facility] odify By: alex loaiza DateTime : 12/18/19 12 03:30:00 PM Not Available Not Available Not Available Diflucan 10 mg/mL oral suspensio n take 10 millilit er by oral route every day 03/05 completed Prescrib ed Elsewher e: Yes Loca tion: [facility] odify By: nella burciaga DateTime : 02/01/20 [...] Elsewher e: No Locat ion: [facility] odify By: bettie gleason DateTime : 06/20/19 [...] Elsewher e: No Locat ion: [facility] odify By: luba gleason DateTime : 12/14/19 11 11:30:00 AM Not Available Not Available Not Available modafinil 100 mg tablet take 2 tablet by oral route every day in the morning 01/31 completed Prescrib ed Elsewher e: Yes Loca tion: [facility] odify By: luba gleason DateTime : 01/25/20 14 02:34:16 PM Not Available Not Available Not Available Vitamin C 500 mg capsule,e xtended release active Prescrib ed Elsewher e: Yes Loca tion: [facility] odify By: alex loaiza DateTime : 01/25/20 14 02:34:16 PM Not Available Not Available Not Available ciclopiro x 0.77 % topical cream apply by topical route every day to the affected and surround ing areas of skin in the morning and evening 01/31 completed Prescrib ed Elsewher e: Yes Loca tion: [facility] odify By: lsloan E ncounter DateTime : 01/25/20 14 02:34:16 PM Not Available Not Available Not Available Methotrex ate (Anti-Rhe umatic) 2.5 mg tablets in a dose pack take 2 tablet by oral route every week 01/31 completed Prescrib ed Elsewher e: Yes Loca tion: [facility] odify By: luba Gandhi ncounter DateTime : 01/18/20 14 03:45:00 PM Not Available Not Available Not Available cyclospor ine 0.05 % eye drops in a dropperet te INSTILL 1 DROP INTO EACH EYE TWICE DAILY 05/03 completed Not Available Not Available Not Available Glucosami ne 1500 Complex 500 mg-400 mg capsule 04/27 completed Prescrib ed Elsewher e: No Locat ion: [facility] odify By: adminnew Encount er DateTime [...] Elsewher e: Yes Loca tion: [facility] odify By: alinay Matthew burciaga DateTime : 01/25/20 14 02:34:16 PM Not Available Not Available Not Available Aleve 220 mg capsule 12/17 completed Prescrib ed Elsewher e: Yes Loca tion: [facility] odify By: alex loaiza DateTime : 07/03/19 12 02:45:00 PM Not Available Not Available Not Available glucosami ne-chondr oitin 167 mg-133 mg capsule active Prescrib ed Elsewher e: Yes Loca tion: [facility] odify By: alex loaiza DateTime : 01/25/20 14 02:34:16 PM Not Available Not Available Not Available Natural Psyllium Fiber 3.4 gram/5.8 gram oral powder active Prescrib ed Elsewher e: Yes Loca tion: [facility] odify By: alex loaiza DateTime : 01/25/20 14 02:34:16 PM Not Available Not Available Not Available Women's One Daily 18 mg iron-400 mcg-500 mg Ca tablet 03/05 completed Prescrib ed Elsewher e: Yes Loca tion: [facility] odify By: nella burciaga DateTime : 01/25/20 14 02:34:16 PM Not Available Not Available Not Available Vitamin B-12 1,000 mcg/mL oral drops 04/27 completed Prescrib ed Elsewher e: Yes [facility]oca [facility]ion[facility] By: alex loaiza DateTime : 01/25/20 14 02:34:16 PM Not Available Not Available Not Available Otezla 30 mg tablet take 1 tablet by oral route 2 times every day approxim ately 12 hours apart 04/27 completed Prescrib ed Elsewher e: Yes Loca tion: [facility]ify By: bettie gleason DateTime : [...] Body mass index (BMI) Body weight Systolic And Diastolic Provider Name and Address Organization Details Last Updated DateTime 05/03/2022 156.21 cm 42.5 kg/m2 913644.22 g 130/80 mm[Hg] Ginna De Jesus [facility] 05/03/2022 11:24:06 Date Recorded Body height Body mass index (BMI) Body weight Systolic And Diastolic Provider Name and Address Organization Details Last Updated DateTime 07/25/2021 156.21 cm 42.9 kg/m2 795431.84 g 126/79 mm[Hg] Julita [facility] 07/25/2021 18:30:09 Date Recorded Body height Body mass index (BMI) Body weight Systolic And Diastolic Provider Name and Address Organization Details Last Updated DateTime 08/18/2021 156.21 cm 43.5 kg/m2 572283.61 g 126/81 mm[Hg] [facility] 08/18/2021 10:29:45 Social History Question Answer Notes LastModified by Organizat ion Details LastModified Time Tobacco Smoking Status Never Smoker [facility] 08/18/2021 10:26:06 Do You Have An Advance Directive? No Information n ot available 04/27/2021 Are You Blind Or Do You Have Difficulty Seeing? Yes Information n ot available 04/27/2021 What Is Your Level Of Caffeine Consumption? Heavy Information not available 04/27/2021 In The 14 Days Before Symptom Onset, Have You Had Close Contact With A Laboratory-confirm ed COVID-19 While That Case Was Ill? No Information n ot available 04/27/2021 In The 14 Days Before [...] Of Diet Are You Following? REGULAR Information n ot available 04/26/2021 What Is The Highest Grade Or Level Of School You Have Completed Or The Highest Degree You Have Received? [id number] Information not available 04/27/2021 Do You Use [...] Information not available 04/27/2021 Do You Use Sunscreen Routinely? Yes Information not available 04/26/2021 How Many Years Have You Smoked Tobacco? 21 Information not available 04/27/2021 Have You Used IV Drugs? No Information not available 04/27/2021 Do You Have Difficulty Walking Or Climbing Stairs? No Information not available 08/18/2021 Sex: Unknown Functional Status Question Answer Note LastModified by Organizat ion Details LastModified Time Do you use any illicit or recreational drugs? No Information not available 04/26/2021 What is your level of alcohol consumption? Occasional Information not available 04/26/2021 Are you able to walk? YESWOREST Information not available 04/26/2021 Are you able to care for yourself? 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 No Information not available 08/18/2021 What is your exercise level? None Information not available 04/27/2021 Mental Status Question Answer Note LastModified by Organization D etails LastModified Time Do you feel stressed (tense, restless, nervous, or anxious, or unable to sleep at night)? [id number] Information not available 04/27/2021 Family History Relationship Description Onset Age of this Age Resolved Age Notes LastModified by Organization Details LastModified Time Brother Aortocoronar y bypass of one coronary artery Not available 2021 10:26:05 Father Pulmonary embolism Not available 2021 10:26:05 Mother Anemia Not available 04/2021 17:12:45 Mother Disorder of thyroid gland Not available 2021 17:12:51 Paternal Grandmother Malignant neoplasm of lung Not available 2021 17:13:01 Notes:great aunt colon shashank r, breast cancer Medical History Condition Response Allergies (Food, seasonal, environmental ) Y Other Y Arthritis Y History of abnormal pap Y Acid Reflux (GERD) Y Eczema Y Fibromyalgia Y Thyroid Problems [...] SNOMED-CT Code Diagnosis ICD10 Code Diagnosis Note [id number] Karina Jones , [facility] [address] [address] 04/27/2021 09:19:17 04/27/2021 10:22:47 Gynecologic examination 55994645 Z01.419 Take Calcium with Vitamin D 12-1500mg daily. Do monthly self breast exams. It is advised to get annual flu shot in the fall and she could obtain at [facility] or [facility] clinic. If you haven't received the Tdap [...] on UTD per pcp Postmenopausal state 764 26547 Z78.0 Postmenopa usal bleeding 21617887 N95.0 Had an instance of PMB spotting in December that lasted a day with light panty liner & then one in February 2021 x 1 day.There was an area of irritation on top of cervix on exam but it appears more from postmenopa usal changes versus a lesion.We agreed to do an updated TVUS to ensure no other issues. [id number] Ephraim Alvarado MD [place] [address] [address] 05/08/2021 16:32:52 05/08/2021 18:20:58 Postmenopausal bleeding 09491763 N95.0 [id number] Ephraim Alvarado MD [place] [address] [address] 05/14/2021 16:39:48 05/15/2021 13:36:37 Cyst of ovary 72124779 N83.209 Postmenopa usal bleeding 02996276 N95.0 this patient is a 60-year-ol d female with postmenopa usal bleeding, and a complex ovarian cyst. We have agreed to perform hysterosco py D&C to evaluate the endometriu m. We will do this in the hospital. She understand s the risks, benefits, and alternativ es. She has completed the informed consent process and is ready to proceed. [id number] Ephraim Alvarado MD [place] [address] [address] 07/12/2021 10:07:38 07/12/2021 10:09:05 [id number] Ephraim Alvarado MD [place] [address] [address] 07/25/2021 18:22:49 07/26/2021 14:41:29 Postmenopausal bleeding 72902750 N95.0 this patient is a 60-year-ol d female who presents for follow-up on postmenopa usal bleeding. Reason the endometriu m was performed. Is benign. Patient has not had any bleeding. We will observe for bleeding. She is due back for a follow-up ultrasound on the complex ovarian cyst. [id number] Ephraim Alvarado MD [place] [address] [address] 08/02/2021 17:04:23 08/03/2021 12:39:18 Cyst of right ovary [id number] 1108082 N83.201 [id number] Ephraim Alvarado MD [place] [address] [address] 08/18/2021 10:23:44 08/20/2021 15:07:06 Cyst of ovary 29949952 N83.209 Postmenopa usal bleeding 68128065 N95.0 This patient is a 6-year-old female [...] She is status post endometria l ablation. [id number] [facility] [address] [address] 05/03/2022 10:57:33 05/03/2022 12:12:20 Gynecologic examination 62977142 Z01.419 Z11.51 Take Calcium with Vitamin D 12-1500mg daily. Do monthly self breast exams. It is advised to get annual flu shot in the fall and she could obtain at [facility] or [facility] take care clinic. If you haven't received the [...] [facility] Labs PCPMammo ordered Screening mammography 24 329005 Z12.31 Health Concerns Section Related Observation LastModified by Organization Detai ls LastModified Time None Recorded Concern Status LastModified by Organization Details LastModified Time None Recorded Advance Directives Directive N: Payers Insurance Date Sequence Insurance Name Policy Number Policy Dang Covered Member ID Dang Member ID Guarantor Name 05/14/2022 1 [facility] B[employer]AN (PPO) [address] [id number] OI [id number] SOI Babita Pascual 05/14/2022 1 [facility] B[employer]EFITS [employer]AN Evan Samara [id number] OI Babita Pascual Notes Date Note Type Note [...] Ephraim Alvarado MD [address], [place], [address], [facility] 07/25/2021 18:53:51 08/18/2021 text/html This patient is a 6-year-old female who presents for follow-up on ovarian cyst. Her ovarian cyst has resolved. We repeated an ultrasound about a week back. She has no symptoms. We evaluate her postmenopausal bleeding. She had hysteroscopy D&C in the hospital and the biopsy showed benign endometrium. She will follow up as needed. We spent 15 minutes [id number] discussing her ultrasound results. More than 50% was counseling. I shared the images with her. We talked about her postmenopausal bleeding. We talked about recent possible ovulation. She is status post endometrial ablation. Ephraim Alvarado MD [address], [place], [address], [facility] 08/18/2021 11:51:44 05/03/2022 text/html Annual Continuing Education Instructor Post-MenopausalRepor percy bypatient.Menopausal Symptoms:no menopausal symptoms; normal [...] mammogram; history of recent colonoscopy HARI Sage- [address], [place], [address], [facility] 05/03/2022 11:43:02 OBGyn Episode Ob Episode Information Episode Created Date Number of Fetuses Patient Bloodtype Patient rh Status Prepregnancy Weight lbs Domestic Partner Domestic Partner Phone Father Name Check Scaler Status 04/27/19 22 1 CLOSED Fetus Data First Name Last Name Admitted to NICU Weight (g) Sex Living Outcome Pediatric Complications Fetus ID Race Codes Race Delivery Type M [id number] Vaginal Delivery Johny Calculation Initial Johny Date [...] Post Complications Tubal Sterilization Discharge Date Comments 4 Discharge Information Feeding Method Contraceptive Method Maternal HG B and HCT Levels
--- OUTSIDE RECORDS SUMMARY | 2024-09-10 15:51 | XMS_ITS | Encounter Summary ---
Author Organization [facility] Health Address [address] [facility] [place] [address] Care Team Providers Care Boring And Filling Machine Operator Name Role Phone Amira San MD Primary Care Provider + Encounter Details Date Type Department Care Team (Late st Contact Info) Description 10/09/2017 Lab Requisition [facility] Care DermPath Lab [address] [facility], [place] [address] Toño John MD [address] [place] [address] Social History Tobacco Use Types Packs/Day Years Used Date Smoking Tobacco: Never Assessed Comments Unknown Sex and Gender Information Value Date Recorded Sex Assigned at Not on file Legal Sex Female 6:01 PM HEAD OF HUMAN RESOURCES Gender Identity Not on file Sexual Orientation Not on file documented as of this encounter Plan of Treatment Not on file documented as of this encounter Procedures Procedure Name Priority Date/Time Associated Diagnosis Comments DERMATOPATHOLOGY Routine 10/08/2017 12:0 0 AM CDT documented in this encounter Results * DERMATOPATHOLOGY (10/08/2017 12:00 AM CDT) Case Report Dermatopathology Report Case: [id number] Authorizing Provider: Toño John MD Collected: 10/08/2017 12:00 AM Pathologist: Ankit Hernandez MD Received: 10/09/2017 12:48 PM Specimen: Skin, left extensor proximal forearm 8 4:45 PM CDT DERMATOPATHOLOGY LABORATORY Final Diagnosis Specimen A. 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 8 4:45 PM CDT DERMATOPATHOLOGY LABORATORY Gross Description Specimen A: Received is one formalin filled container labeled with the patient's name and designated left extensor proximal forearm. The specimen consists of a punch biopsy measuring [id number], bisected. Jar 0. 4:45 PM CDT DERMATOPATHOLOGY [...] characteristic determined by the Dermatopathology Laboratory at [facility]. These tests need not be, and therefore are not, approved by the [place] Food and Drug Administration. The tests are used for clinical purposes. Billing Codes Specimen Charges Stain Charges 59674 1 8 4:45 PM CDT DERMATOPATHOLOGY LABORATORY Embedded Images 8 4:45 PM CDT DERMATOPATHOLOGY LABORATORY Pathology/Cytolog y TISSUE SPECIMEN FROM SKIN / Unknown 10/08/2017 10/09/2017 12:48 PM CDT us Toño John MD LAB - PATHOLOGY/CYTOLOGY ORD ERABLES Final Result DERMATOPATHOLOGY LABORATORY [facility] - Department of Dermatology [address] [place] [address], 5th Floor Lab [address] [phone] documented in this encounter Visit Diagnoses Not on filedocumented in this encounter Care Teams Boring And Filling Machine Operator Relationship Specialty Start Date End Date Amira San MD [address] [facility] [address] [place] [id number] PCP - General 07/16/21 documented as of this encounter
--- OUTSIDE RECORDS SUMMARY | 2024-09-10 15:51 | XMS_ITS | Encounter Summary ---
Author Organization [facility] Health Address [address] [facility] [place] [address] Care Team Providers Care Manager Simulation Name Role Phone Amira San MD Primary Care Provider + Encounter Details Date Type Department Care Team (Late st Contact Info) Description 02/21/2020 Lab Requisition [facility] DermPath Lab [address] [facility], [place] [address] Toño John MD [address] [place] [address] Social History Tobacco Use Types Packs/Day Years Used Date Smoking Tobacco: Never Assessed Comments Unknown Sex and Gender Information Value Date Recorded Sex Assigned at Not on file Legal Sex Female 6:01 PM AN/SSN 2 4 OPERATOR Gender Identity Not on file Sexual Orientation Not on file documented as of this encounter Plan of Treatment Not on file documented as of this encounter Procedures Procedure Name Priority Date/Time Associated Diagnosis Comments DERMATOPATHOLOGY Routine 02/16/2020 3:33 AM AN/SSN 2 4 OPERATOR documented in this encounter Results * DERMATOPATHOLOGY (02/16/2020 3:33 AM AN/SSN 2 4 OPERATOR) Case Report Dermatopathology Report Case: [id number] Authorizing Provider: Toño John MD Collected: 02/16/2020 03:33 AM Ordering Location: [facility] DermPath Lab Received: 02/21/2020 07:03 AM Pathologist: Ankit Hernandez MD Specimen: Skin, right cheek 0 4:50 PM [facility] DERMATOPATHOLOGY LABORATORY Final Diagnosis Specimen A. SKIN, right cheek: PIGMENTED SEBORRHEIC KERATOSIS (L82.1) 0 4:50 PM [facility] DERMATOPATHOLOGY LABORATORY at 1649 AN/SSN 2 4 OPERATOR Clinical History R/O ISK, SK, other melanocytic lesion. 0 4:50 PM [facility] DERMATOPATHOLOGY LABORATORY Gross Description Specimen A: Received is one formalin filled container labeled with the patient's name and designated right cheek. The specimen consists of a shave biopsy measuring [id number]. Jar 0. 0 4:50 PM [facility] DERMATOPATHOLOGY LABORATORY Microscopic Description Specimen A. SKIN, right cheek: Sections show an acanthotic lesion composed of relatively uniform keratinocytes.There is hyperkeratosis and pseudo horn cysts. Pigment is present in the keratinocytes composing this tumor. 0 4:50 PM [facility] DERMATOPATHOLOGY LABORATORY Disclaimer An external and internal positive and negative controls are appropriate for the histochemical, immunohistochemical and immunofluorescence stain(s) in this case (if any), except where stated explicitly. The performance characteristics of the stain(s) cited in this report were developed and its performance characteristic determined by the Dermatopathology Laboratory at [facility], directed by Dr. Michelle Hernandez. These tests need not be, and therefore are not, approved by the [place] Food and Drug Administration. The tests are used for clinical purposes. Billing Codes Specimen Charges Stain Charges [id number] 1 0 4:50 PM [facility] DERMATOPATHOLOGY LABORATORY Embedded Images 0 4:50 PM [facility] DERMATOPATHOLOGY LABORATORY Pathology/Cytolo gy TISSUE SPECIMEN FROM SKIN / Unknown 02/16/2020 3:33 AM AN/SSN 2 4 OPERATOR 02/21/2020 7:03 AM AN/SSN 2 4 OPERATOR Toño John MD LAB - PATHOLOGY/CYTOLOGY ORD ERABLES Final Result DERMATOPATHOLOGY LABORATORY [facility] - Department of Dermatology [address], [address] [phone] documented in this encounter Visit Diagnoses Not on filedocumented in this encounter Care Teams Manager Simulation Relationship Specialty Start Date End Date Amira San MD [address] [facility] [address] [place] [address] PCP - General 07/16/21 documented as of this encounter
--- OUTSIDE RECORDS SUMMARY | 2024-09-10 15:51 | XMS_ITS | Encounter Summary ---
Author Organization [facility] Address [address] [place] [address] Care Team Providers Care Radar Engineer Name Role Phone Dorota Campbell MD Primary Care Provider [phone] Antoinette Ruiz PA-C Unavailable [phone] Encounter Details Date Type Department Care Team (Late st Contact Info) Description 10/24/2023 [place] Message Enc [facility] Medical Group Orthopedic & Sports Medicine - [place] [address] [place], [facility] Provider questions Social History Tobacco Use Types [...] from your doctor or pharmacy? Never 06/30/2023 [facility] Utilities Answer Date Recorded In the past 12 months has [facility] [employer], gas, oil, or water [employer] threatened to shut off services in your [...] Recorded Patient Health Questionnaire-2 Score 0 07/15/2023 [facility] Occupat ional [facility] - Occupational Stress Questionnaire Answer Date Recorded [...] any time in the past 12 m [facility], were you homeless or living in a custodial (including now)? No 06/30/2023 Comments No Sex and Gender Information Value Date Recorded Sex Assigned at Female 04/01/2024 4:04 PM SALES CONSULTING DIRECTOR Legal Sex Female 5:30 PM CDT Gender Identity Female 04/01/2024 4:04 PM SALES CONSULTING DIRECTOR Sexual Orientation Not on file documented as [...] Description 11/11/2024 4:20 PM CDT Office Visit [facility] Medical Group Family & Internal Medicine [facility] [address] [place] [address] [place] [address] [facility] [place] [address] documented as of this encounter Visit Diagnoses Not on filedocumented in this encounter Additional Health Concerns Infection Onset Date Last Indicated Resolved Time COVID-19 Rule Out 02/23/2024 02/23/2024 02/23/2024 4:27 PM SALES CONSULTING DIRECTOR documented as of this encounter Care Teams Radar Engineer Relationship Specialty Start Date [place] Dor[place] [address] [place] [address]. [address] [place] [address] PCP - General FAMILY PRACTICE 04/02/22 Antoinette Ruiz, PASachinC [address] [place] [address] PHYSICIAN CONCRETE CURER 06/17/23 documented as of this encounter
--- OUTSIDE RECORDS SUMMARY | 2024-09-10 15:51 | XMS_ITS | Clinical Summary ---
Author Organization [facility] Address [address] [place] [address] Care Team Providers Care Manager Actuarial Name Role Phone Amira San MD Primary Care Provider + Source Comments [facility],non-owned Affiliates and Associated Physician Practices is amultiple site organization consisting of ambulatory clinics and hospital sitesin [place], [place], [place] and [place]. This disclosure is being madepursuant to the Care Everywhere program and may not contain all information available regarding this patient. Last updated 17.[facility] Social History Tobacco Use Types Packs/Day Years Used Date Smoking Tobacco: Never Assessed Comments Unknown Sex and Gender Information Value Date Recorded Sex Assigned at Not on file Legal Sex Female 6:01 PM SPECIAL ASSETS OFFICER Gender Identity Not on file Sexual Orientation [...] season) 2023 DEPRESSION SCREENING 02/25/2024 INFLUENZA VACCINE (#1) 2024 Respiratory Syncytial Virus (RSV) Vaccine Pt: [...] patient's age to complete this topic Insurance MICMALI Care Teams Manager Actuarial Relationship Specialty Start Date End Date Amira San MD [address] [place] [address] PCP - General 07/16/21
--- OUTSIDE RECORDS SUMMARY | 2024-09-10 15:51 | XMS_ITS | Encounter Summary ---
Author Organization [facility] Address [address] [place] [address] Care Team Providers Care Supervisory Investigative Specialist Name Role Phone Dorota Campbell MD Primary Care Provider [phone] Antoinette Ruiz PA-C Unavailable [phone] Encounter Details Date Type Department Care Team (Late st Contact Info) Description 12/31/2023 [place] Message Enc [facility] Medical Group Orthopedic & Sports Medicine - [place] [address] [place] [facility] Provider dental medication Social History Tobacco Use [...] from your doctor or pharmacy? Never 06/30/2023 [place] Utilities Answer Date Recorded In the past 12 months has e electric, gas, oil, or water [employer] threatened to shut off services in your [...] Recorded Patient Health Questionnaire-2 Score 0 07/15/2023 [facility] - Occupational Stress Questionnaire Answer Date Recorded [...] any time in the past 12 m [facility], were you homeless or living in a group home (including now)? No 06/30/2023 Comments No Sex and Gender Information Value Date Recorded Sex Assigned at Female 04/01/2024 4:04 PM VETERINARY INSPECTOR Legal Sex Female 5:30 PM CDT Gender Identity Female 04/01/2024 4:04 PM VETERINARY INSPECTOR Sexual Orientation Not on file documented as [...] Assessment Author Status No 06/30/2023 11:52 AM MAUNELITOT Fay Morales RN Active * Because of [...] Description 11/11/2024 4:20 PM CDT Office Visit [facility] Medical Group Family & Internal Medicine [facility] [address] [place] [address] [place] [address] [facility] [place] [address] documented as of this encounter Visit Diagnoses Not on filedocumented in this encounter Additional Health Concerns Infection Onset Date Last Indicated Resolved Time COVID-19 Rule Out 02/23/2024 02/23/2024 02/23/2024 4:27 PM VETERINARY INSPECTOR documented as of this encounter Care Teams Supervisory Investigative Specialist Relationship Specialty [place] [address] [facility] [address] [place] [address] PCP - General FAMILY PRACTICE 04/02/22 Antoinette Ruiz PA-C [address] [place] [address] PHYSICIAN DE ALCHOLIZER 06/17/23 documented as of this encounter
--- OUTSIDE RECORDS SUMMARY | 2024-09-10 15:51 | XMS_ITS | Encounter Summary ---
Author Organization [facility] Address [address] [place] [address] Care Team Providers Care Gaming Department Head Name Role Phone Dorota Campbell MD Primary Care Provider [phone] Antoinette Ruiz PA-C Unavailable Encounter Details Date Type Department Care Team (Late st Contact Info) Description 10/09/2023 [employer] Message Enc [facility] Medical Group Orthopedic & Sports Medicine - [place] [address] [place], [facility] Provider appointment Social History Tobacco Use Types [...] from your doctor or pharmacy? Never 06/30/2023 [facility] Utilities Answer Date Recorded In the past 12 months has [facility] [employer], gas, oil, or water [employer] threatened to shut off services in your [...] Recorded Patient Health Questionnaire-2 Score 0 07/15/2023 [facility] of Occupat ional [facility] - Occupational Stress Questionnaire Answer Date [...] any time in the past 12 m [facility], were you homeless or living in a longterm (including now)? No 06/30/2023 Comments No Sex and Gender Information Value Date Recorded Sex Assigned at Female 04/01/2024 4:04 PM GREENHOUSE SUPERINTENDENT Legal Sex Female 5:30 PM CDT Gender Identity Female 04/01/2024 4:04 PM GREENHOUSE SUPERINTENDENT Sexual Orientation Not on file documented as [...] Description 11/11/2024 4:20 PM CDT Office Visit [facility] Medical Group Family & Internal Medicine [facility] [address] [place] [address] [place] [address] [facility] [place] [address] documented as of this encounter Visit Diagnoses Not on filedocumented in this encounter Additional Health Concerns Infection Onset Date Last Indicated Resolved Time COVID-19 Rule Out 02/23/2024 02/23/2024 02/23/2024 4:27 PM GREENHOUSE SUPERINTENDENT documented as of this encounter Care Teams Gaming Department Head Relationship Specialty Start Date End [place] Dorota Campbell [place] [address] [place] [address]. [address] [place] [address] PCP - General FAMILY PRACTICE 04/02/22 Antoinette Ruiz, PASachinC [address] [place] [address] PHYSICIAN MEDICAL BILLING SUPERVISOR 06/17/23 documented as of this encounter
--- OUTSIDE RECORDS SUMMARY | 2024-09-10 15:51 | XMS_ITS | Encounter Summary ---
Author Organization [facility] Address [facility] [place] [address] Care Team Providers Care Geospatial Program Management Officer Name Role Phone Dorota Campbell MD Primary Care Provider [phone] Antoinette Ruiz PA-C Unavailable [phone] Encounter Details Date Type Department Care Team (Late st Contact Info) Description 06/05/2022 [place] Message Enc [facility] Medical Group Family & Internal Medicine [address] [address] [facility] labs/refills Social History Tobacco Use [...] Sex Assigned at Female 04/01/2024 4:04 PM AWNING CRAFTSMAN Legal Sex Female 5:30 PM CDT Gender Identity Female 04/01/2024 4:04 PM AWNING CRAFTSMAN Sexual Orientation Not on file COVID-19 Exposure [...] Description 11/11/2024 4:20 PM CDT Office Visit [facility] Medical Group Family & Internal Medicine [facility] [address] [place] [address] [place] [address] [facility] [place] [address] documented as of this encounter Visit Diagnoses Not on filedocumented in this encounter Additional Health Concerns Infection Onset Date Last Indicated Resolved Time COVID-19 Rule Out 02/23/2024 02/23/2024 02/23/2024 4:27 PM AWNING CRAFTSMAN documented as of this encounter Care Teams Geospatial Program Management Officer Relationship Specialty [place] [address] [facility] [place] [address] PCP - General FAMILY PRACTICE 04/02/22 Antoinette Ruiz PA-C [address] [place] [address] PHYSICIAN TRAP OPERATOR 06/17/23 documented as of this encounter
--- OUTSIDE RECORDS SUMMARY | 2024-09-10 15:51 | XMS_ITS | Clinical Summary ---
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 Interpretive Statements SINUS RHYTHM WITH OCCASIONAL SUPRAVENTRICULAR PREMATURE COMPLEXES Compared to ECG 06/17/2023 08:56:48 No significant changes Procedure Note Michael Nieves MD - 08/29/2024 [facility] Test Date: 2024-08-26 Pat Name: [facility] Department: 85 Room: EXAM 202 Gender: Female [employer] Manufacturer: : [id number] Requested By: SHAVONNE GUNN Order Number: [id number] Reading MD: Michael Nieves Measurements Intervals Perkins Rate: 78 P: -1 VT: 132 QRS: 13 QRSD: 85 T: 41 QT: 396 QTc: 453 Interpretive Statements SINUS RHYTHM WITH OCCASIONAL SUPRAVENTRICULAR PREMATURE COMPLEXES Compared to ECG 06/17/2023 08:56:48 No significant changes us Shavonne Gunn MD ECG ORDERABLES Final Result [facility] RAD * OUTSIDE LAB (SCAN ORDER) (08/09/2024) Only the most recent of5 resultswithin the time period is included. 08/09/2024 [facility] Scanned SCANNING Final Resu lt * OXR RT KNEE 3V (06/22/2024 3:29 PM CDT) Anatomical Region Laterality Modality Radiographic Alexus ging Narrative 06/22/2024 3:37 PM CDT PROCEDURE: OXR RT KNEE 3V VIEWS: 4 DATE: 06/22/24 COMPARISONS: None CLINICAL INDICATION: FINDINGS: Total knee arthroplasty fixed in good alignment. No signs of loosening or complication. No acute findings. IMPRESSION: Unremarkable total knee replacement. Gaudencio Correa MD GENERAL IMAGING Final Result * HEPATITIS C AB ([facility] ONLY) (04/16/2024 10:09 AM HOUSE PIPING INSPECTOR) HEPATITIS C AB NON-REACTI VE NON-REACTI VE 04/16/2024 3:34 PM HOUSE PIPING INSPECTOR [facility] 04/16/2024 10:0 9 AM HOUSE PIPING INSPECTOR Dorota Villatoro MD LABORATORY Final Result [facility] [address] [place] [address], * CYTOPATH CERV/VAG THIN LAYER [[id number]] (04/01/2024 12:00 AM HOUSE PIPING INSPECTOR) THIN PREP PAP [address] [address] Department of Pathology Pathology Report CERVICAL/VAGINAL PAP SMEAR REPORT Name: ROEL CONTRERAS Age: 10 1960 (Age: 63) Location: [facility] Sex: F Collected Date: 04/01/2024 Hospital #: [id number] Date Received: 04/05/2024 Date Reported: 04/06/2024 Provider: DOROTA VILLATORO MD INTERPRETATION CERVICAL/ENDOCERVI ANIVAL: SATISFACTORY FOR EVALUATION. [...] is not effective in detecting cervical adenocarcinoma. [facility] 04/01/2024 04/05/2024 9:1 8 AM HOUSE PIPING INSPECTOR Comment:CERVICAL/ENDOCERVICA L Dorota Villatoro MD PATHOLOGY/CYTOLOGY ORDERABLES Final Result Performing Organization Address City/[facility] Co de Phone Number [facility] [address] [place] [address], * MAMMOGRAM GENERIC (07/20/2022) Anatomical Region Laterality Modality Other 07/20/2022 [facility] Scanned SCANNING Final Resu lt * Colonoscopy (04/14/2015 12:00 AM HOUSE PIPING INSPECTOR) 04/14/2015 04/14/2015 Narrative [facility] TO EPIC CONVERSION - 04/14/2015 12:00 AM HOUSE PIPING INSPECTOR Documented hx of procedure Procedure Note Rolly Nixon MD - 12/28/2017 Documented hx of procedure us Generic Conversion Md [facility] PROCEDURE ORDERABLES Final Result [facility] TO EPIC CONVERSION from Last 3 Months or Most Recently Relevant to Health Maintenance Insurance [email or web address] OPEN ACCESS [facility] Advance Directives * Full Code (Latest Code Status on File) Date Activated Date Inactivated Comments 07/02/2023 3:07 PM 08/26/2024 8:09 PM * Full Code Date Activated Date Inactivated Comments 06/30/2023 11:12 AM 07/01/2023 5:01 PM Care Teams Flight Attendant Relationship Specialty [place] [address] [place] [address] PCP - General FAMILY PRACTICE 04/02/22 Antoinette Ruiz PA-C [address] [place] [address] PHYSICIAN ASSEMBLY STOCK SUPERVISOR 06/17/23
== END 2024-09-10 15:48 | disposition home or self-care (01) ==
LOC: ANHIMG 15:48
PROVIDERS: PCP Family Medicine; Visit Provider Student in an Organized Health Care Education/Training Program
DX: Z12.31 Encounter for screening mammogram for malignant neoplasm of breast (principal)
CPT/HCPCS: 77063; 77067